=== PATIENT | female | born 1960 | race American Indian/Alaskan Native ===

== ENCOUNTER 2018-08-21 11:52 | Day surgery (SDC) | payer BC, MEDICARE ==
[2018-08-21 09:59] VITALS: BMI 24.3
[2018-08-21] MEDS ORDERED: Propofol 10 mg/ml Inj (20 ML) ONE (14:03)
[2018-08-21] MEDS ORDERED: Sodium Chloride 0.9% 1,000 ML IV SCH (15:00)
[2018-08-21 15:29] VITALS: O2SAT 99
[2018-08-21 15:53] VITALS: BP 136/80; PULSE 61; RESP 16; TEMP 97.8
== END 2018-08-21 17:00 | disposition home or self-care (01) ==
LOC: ENDO 11:52
PROVIDERS: ATTEND Internal Medicine Gastroenterology
DX: K52.9 Noninfective gastroenteritis and colitis, unspecified (principal); K63.5 Polyp of colon; K57.30 Diverticulosis of large intestine without perforation or abscess without bleeding; K64.8 Other hemorrhoids
CPT/HCPCS: 45380; 45385; 88305; J1642; J2001; J2704; J7030; J7040

== ENCOUNTER 2018-10-06 11:17 | Inpatient (IN) | payer BC, MEDICARE ==
[2018-10-06] MEDS ORDERED: Morphine 4 mg/ml ISec IVP STA ×2 (11:59→14:16)
--- NOTE | 2018-10-06 12:28 | ED PDOC ---
Arrival/HPI - General Historian: Patient - History of Present Illness Narrative History of Present Illness (Text): 10/06/18 12:19 58 year old female, whose past medical history includes hypertension, peripheral vascular disease, seizures, syncope, GI bleed, hemophilia, von Williebrand's disease, bowel surgery presenting with worsening abdominal pain over the past 3 days. She states 3 days ago she had a slight ache in her abdominal region and didn't think anything of it. Today, she felt sharp abdominal pain in the epigastric, periumbilical, and the center of the entire abdomen. Patient states pain does not radiate to her back, and has similar pain to the presenting symptoms in the past. She denies constipation (chronic loose bowel movements), urinary symptoms, fever, chills, chest pain, shortness of breath, or any other complaint. Time/Duration: < week Symptom Course: Worsening Quality: Aching Activities at Onset: Light Context: Home <Sybil Davenport - Last Filed: 10/06/18 17:05> <Torey Vela - Last Filed: 10/06/18 17:13> - General Chief Complaint: Abdominal Pain Time Seen by Provider: 10/06/18 11:18 Past Medical History - Provider Review Nursing Documentation Reviewed: Yes - Infectious Disease Hx of Infectious Diseases: None - Tetanus Immunization Tetanus Immunization: Unknown - Cardiac Hx Pacemaker: No - Pulmonary Hx Respiratory Disorders: No - Neurological Hx Paralysis: No - HEENT Hx HEENT Disorder: Yes Other/Comment: Reading glasses - Renal Hx Renal Disorder: No Other/Comment: HYPONATREMIA - Endocrine/Metabolic Hx Endocrine Disorders: Yes - Hematological/Oncological Hx Blood Transfusions: Yes Hx Blood Transfusion Reaction: No - Integumentary Hx Dermatological Disorder: No Other/Comment: skin pigmentation problem to neck - Musculoskeletal/Rheumatological Hx Musculoskeletal Disorders: Yes - Gastrointestinal Hx Gastrointestinal Disorders: Yes Hx Bowel Surgery: Yes Hx Diarrhea: Yes Hx Gall Bladder Disease: Yes (CHOLECYSTECTOMY) Other/Comment: small bowel resection 1991,1995 x2 ,H/O OF C DIFF 05-21-13. Mal absorption syndrome,SMALL BOWEL RESECTION, - Genitourinary/Gynecological Hx Genitourinary Disorders: Yes Hx Reproductive Disorders: No Other/Comment: OVARIAN CYST,LEFT OVARY REMOVED,HYSTERECTOMY, - Psychiatric Hx Emotional Abuse: No Hx Physical Abuse: No Hx Substance Use: No - Surgical History Hx Breast Biopsy: (removal of cyst) Hx Cholecystectomy: Yes Hx Hysterectomy: Yes Hx Musculoskeletal Surgery: Yes Hx Orthopedic Surgery: Yes (fx ankle, rotator cuff) Hx Vascular Access Device: Yes (right chest port) Other/Comment: rt upper chest charmaine cath,PICC LINE H/O,PORT TO RIGHT UPPER ARM H/O,TAHBSO,SMALL BOWEAL RESECTION,LEFT BREAST LUMPECTOMY,MULTIPLE ABOMINAL SX , - Anesthesia Hx Anesthesia: Yes Hx Anesthesia Reactions: No Hx Malignant Hyperthermia: No - Suicidal Assessment Feels Threatened In Home Enviroment: No <Sybil Davenport - Last Filed: 10/06/18 17:05> Family/Social History - Physician Review Nursing Documentation Reviewed: Yes Family/Social History: No Known Family HX Smoking Status: Former Smoker Hx Alcohol Use: Yes (SOCIAL) Hx Substance Use: No Hx Substance Use Treatment: No <Sybil Davenport - Last Filed: 10/06/18 17:05> Allergies/Home Meds <Sybil Davenport - Last Filed: 10/06/18 17:05> <Torey Vela - Last Filed: 10/06/18 17:13> Allergies/Adverse Reactions: Allergies amlodipine Allergy (Verified 10/06/18 16:37) PAIN PT DENIES HAVING THIS ALLERGY aspirin Adverse Reaction (Verified 10/06/18 16:37) BLEEDING Home Medications: Home Meds Medication Instructions Recorded Confirmed RX: Alprazolam [Xanax] 0.25 mg PO DAILY PRN 10/07/13 10/06/18 RX: rifAXIMin [Xifaxan] 2 tab PO BID 03/06/15 10/06/18 Colesevelam HCl [Welchol] 1,250 mg PO TID PRN 02/07/16 10/06/18 Diclofenac Epolamine [Flector] 1.3 % TP Q12 02/07/16 10/06/18 Lipase/Protease/Amylase [Creon Dr 3,000 mg PO TID PRN 02/07/16 10/06/18 3,000 Units Capsule] RX: Cyanocobalamin [Vitamin B12 1,000 mcg IM Q30D 02/07/16 10/06/18 1000 mcg/ml Inj] RX: Morphine Sulfate [Morphine 30 mg PO Q12 02/07/16 10/06/18 Sulfate ER] Ascorbic Acid [Vitamin C] 1,000 mg PO DAILY 08/18/18 10/06/18 Atropine/Diphenoxylate [Lonox 1 tab PO PRN PRN 08/18/18 10/06/18 0.025 MG-2.5 MG] Calc/D3/Mag/Zn/Nisreen/[place] 1,200 mg PO BID 08/18/18 10/06/18 [Calcium 600 mg Plus Vit D Tab] Denosumab [Prolia] 60 mg SC .Q6 MONTHS 08/18/18 10/06/18 Garlic Extract [Garlipure] 1,000 mg PO DAILY 08/18/18 10/06/18 Green Tea [place] Extract [Green Tea 500 mg PO DAILY 08/18/18 10/06/18 Extract] Iron Polysac/Iron Heme/FA/B12 1 each PO DAILY 08/18/18 10/06/18 [Hemetab Iron Supplement Tablet] [id number] Ethyl Esters 1 GM 2 gm PO BID 08/18/18 10/06/18 [Lovaza] Turmeric/Turmeric Root Extract 2 each PO DAILY 08/18/18 10/06/18 [Turmeric 500 mg Capsule] Vitamin K 2 With Vitamin K 1 1 tab PO DAILY 08/18/18 10/06/18 cloNIDine [clonidine HCl] 0.1 mg PO DAILY PRN 08/18/18 10/06/18 Cholecalciferol (Vitamin D3) 50,000 unit PO WED 08/21/18 10/06/18 [Vitamin D3] RX: Morphine [Morphine Immediate 15 mg PO Q4H PRN 08/21/18 10/06/18 Release Tab] Review of Systems - Physician Review All systems were reviewed & negative as marked: Yes - Review of Systems Constitutional: absent: Fevers Respiratory: absent: SOB, Cough Cardiovascular: absent: Chest Pain Gastrointestinal: Abdominal Pain (abdominal pain in the epigastric, periumbilical, and the entire center of the abdomen ), Diarrhea (chronic loose bowel movements). absent: Constipation, Nausea, Vomiting Genitourinary Female: absent: Dysuria Musculoskeletal: absent: Back Pain, Neck Pain Skin: absent: Rash Neurological: absent: Headache, Dizziness <Azoia,Sybil T - Last Filed: 10/06/18 17:05> Physical Exam Vital Signs Reviewed: Yes Vital Signs Temp Pulse Resp BP Pulse Ox 10/06/18 11:41 98.8 F 78 16 144/99 H 98 Temperature: Afebrile Blood Pressure: Hypertensive Pulse: Regular Respiratory Rate: Normal Appearance: Positive for: Well-Appearing, Non-Toxic, Comfortable Pain Distress: None Mental Status: Positive for: Alert and Oriented X 3 - Systems Exam Head: Present: Atraumatic, Normocephalic Conjunctiva: Present: Normal Mouth: Present: Moist Mucous Membranes Neck: Present: Normal Range of Motion Respiratory/Chest: Present: Clear to Auscultation, Good Air Exchange. No: Respiratory Distress, Accessory Muscle Use Cardiovascular: Present: Regular Rate and Rhythm, Normal S1, S2. No: Murmurs Abdomen: Present: Tenderness (diffuse abdominal tenderness), Normal Bowel Sounds, Guarding. No: Distention, Peritoneal Signs, Rebound Back: Present: Normal Inspection, Other (backk nontender). No: CVA Tenderness, Midline Tenderness, Paraspinal Tenderness Upper Extremity: Present: Normal Inspection. No: Cyanosis, Edema Lower Extremity: Present: Normal Inspection. No: Edema Neurological: Present: GCS=15, Speech Normal, Motor Func Grossly Intact (moving all extremities ) Skin: Present: Warm, Dry, Normal Color. No: Rashes Psychiatric: Present: Alert, Oriented x 3 <Sybil Davenport T - Last Filed: 10/06/18 17:05> Vital Signs Temp Pulse Resp BP Pulse Ox 10/06/18 13:25 98.3 F 73 16 139/77 100 10/06/18 11:41 98.8 F 78 16 144/99 H 98 <Torey Vela - Last Filed: 10/06/18 17:13> Medical Decision Making ED Course and Treatment: 10/06/18 11:41 Impression: 58 year old female who presents to the emergency department complaining of worsening abdominal pain. Plan: -- VBG -- CT abdomen and Pelvis -- Labs -- Morphine -- Urine Culture -- UA -- Chest X-Ray -- EKG -- Reassess and disposition Prior Visits: Notes and results from previous visits were reviewed. Progress Notes: Patient requiring multiple doses of pain medication in the emergency room Lactate 1.6 White blood cell count 14.5 CMP within normal limits Urinalysis shows trace leukocytes lipase;wnl Chest x-ray shows no cardiomegaly no infiltrate no free air EKG: Normal sinus rhythm at 80 bpm normal axes no ST elevations CAT scan of the abdomen and pelvis:FINDINGS: LOWER THORAX: Unremarkable. LIVER: Unremarkable. No gross lesion or ductal dilatation. Simple cysts are seen in the liver GALLBLADDER AND BILE DUCTS: Removed PANCREAS: There is mild dilatation of the pancreatic duct which measures up to 4 mm in diameter. This is a new finding. There is no obvious pancreatic mass. There is a duodenal diverticulum that projects medially along the inferior aspect of the pancreatic head SPLEEN: Unremarkable. ADRENALS: Unremarkable. No mass. KIDNEYS AND URETERS: Unremarkable. No hydronephrosis. No solid mass. VASCULATURE: Unremarkable. No aortic aneurysm. No aortic atherosclerotic calcification or mural plaque present. BOWEL: Unremarkable. No obstruction. No gross mural thickening. APPENDIX: Normal appendix. PERITONEUM: Unremarkable. No free fluid. No free air. LYMPH NODES: Unremarkable. No enlarged lymph nodes. BLADDER: Unremarkable. REPRODUCTIVE: Unremarkable. BONES: No acute fracture. OTHER FINDINGS: None. IMPRESSION: No acute intra-abdominal findings. Case discussed with Dr. Sanchez in depth; accepts observational status admission to [facility] with GI consult. Case was discussed with Dr. Chavez Boss's fellow in depth including ct finding of pancreatic duct dilitation. all results discussed with patient in depth. impression; intractable abdominal pain; pancreatic duct dilatation admit observational status to med/surg - RAD Interpretation Radiology Orders: 10/06/18 11:46 ABD & PELVIS IV CONTRAST ONLY [CT] Stat CHEST PORTABLE [RAD] Stat - Medication Orders Current Medication Orders: Discontinued Medications Morphine Sulfate (Morphine) 4 mg IVP STAT STA Stop: 10/06/18 12:00 <Sybil Davenport T - Last Filed: 10/06/18 17:05> - Lab Interpretations Lab Results: 10/06/18 12:30 10/06/18 12:30 Lab Results 10/06/18 12:30: WBC 14.5 H, RBC 4.62, Hgb 13.3, Hct 40.3, MCV 87.2, MCH 28.8, MCHC 33.0, RDW 14.1, Plt Count 232, MPV 9.8, Gran % 85.8 H, Lymph % (Auto) 7.0 L , [place] % (Auto) 6.8 H, Eos % (Auto) 0.3 L, Baso % (Auto) 0.1, Gran # 12.46 H, Lymph # (Auto) 1.0 L, [place] # (Auto) 1.0 H, Eos # (Auto) 0.0, Baso # (Auto) 0.01 10/06/18 12:30: Sodium 140, Chloride 100, Potassium 3.8, Carbon Dioxide 31, Anion Gap 13, BUN 7, Creatinine 0.7, Est GFR ( Amer) > 60, Est GFR (Non- Af Amer) > 60, Random Glucose 93, Calcium 9.5, Total Bilirubin 0.8, AST 18, ALT 23, Alkaline Phosphatase 81, Total Protein 7.6, Albumin 4.2, Globulin 3.3, Albumin/Globulin Ratio 1.3, Lipase 37 10/06/18 12:30: Urine Color Yellow, Urine Appearance Clear, Urine pH 7.0, Ur Specific [place] 1.010, Urine Protein Negative, Urine Glucose (UA) Negative, Urine Ketones Negative, Urine Blood Negative, Urine Nitrate Negative, Urine Bilirubin Negative, Urine Urobilinogen 0.2, Ur Leukocyte Esterase Trace H 10/06/18 12:30: pO2 47, VBG pH 7.36, VBG pCO2 56.0, VBG HCO3 31.6 H, VBG Total CO2 33.3 H, VBG O2 Sat (Calc) 83.1 H, VBG Base Excess 4.6 H, VBG Potassium 3.8, Sodium 139.0, Chloride 101.0, Glucose 93, Lactate 1.6, FiO2 21.0, Venous Blood Potassium 3.8 - RAD Interpretation Radiology Orders: 10/06/18 11:46 ABD & PELVIS IV CONTRAST ONLY [CT] Stat CHEST PORTABLE [RAD] Stat - Medication Orders Current Medication Orders: Discontinued Medications Ceftriaxone Sodium (Rocephin 1 Gram Ivpb) 1 gm in 100 mls @ 200 mls/hr IVPB STAT STA; Protocol Stop: 10/06/18 15:41 Last Admin: 10/06/18 16:04 Dose: 200 mls/hr eMAR Start Stop Document 10/06/18 16:04 KV (Rec: 10/06/18 16:05 [place] [facility] Intravenous Solution Start Date 10/06/18 Start Time 16:05 Sodium Chloride (Sodium Chloride 0.9%) 1,000 mls @ 999 mls/hr IV .Q1H1M STA Stop: 10/06/18 16:18 Last Admin: 10/06/18 16:04 Dose: 999 mls/hr eMAR Start Stop Document 10/06/18 16:04 KV (Rec: 10/06/18 16:04 [facility] Intravenous Solution Start Date 10/06/18 Start Time 16:04 Morphine Sulfate (Morphine) 4 mg IVP STAT STA Stop: 10/06/18 12:00 Last Admin: 10/06/18 12:19 Dose: 4 mg MAR Pain Assessment Document 10/06/18 12:19 FLOYD (Rec: 10/06/18 12:20 [facility] [facility] Pain Reassessment Is this a pain reassessment? Yes Presence of Pain Presence of Pain Yes Pain Scale Used Protocol: [facility] Pain Scale Used Numeric Location Left, Right or Bilateral Right Upper or Lower Lower Pain Location Body Site Abdomen Description Description Sharp Intensity of Pain at present 10 IVP Administration Document 10/06/18 12:19 FLOYD (Rec: 10/06/18 12:20 [facility] Charges for Administration # of IVP Administrations 1 Morphine Sulfate (Morphine) 4 mg IVP STAT STA Stop: 10/06/18 14:17 Last Admin: 10/06/18 14:29 Dose: 4 mg MAR Pain Assessment Document 10/06/18 14:29 FLOYD (Rec: 10/06/18 14:29 F[facility] Pain Reassessment Is this a pain reassessment? Yes Presence of Pain Presence of Pain Yes Pain Scale Used Protocol: [facility] Pain Scale Used Numeric Location Upper or Lower Lower Pain Location Body Site Abdomen Description Intensity of Pain at present 9 IVP Administration Document 10/06/18 14:29 FLOYD (Rec: 10/06/18 14:29 [facility] [facility] Charges for Administration # of IVP Administrations 1 Re-Assess: MAR Pain Assessment Document 10/06/18 15:29 KV (Rec: 10/06/18 16:06 K[facility] Pain Reassessment Is this a pain reassessment? Yes Sleep Is patient sleeping during reassessment? No Presence of Pain Presence of Pain Yes Pain Scale Used Protocol: [facility] Pain Scale Used Numeric Description Intensity of Pain at present 6 Pantoprazole Sodium (Protonix Inj) 40 mg IVP STAT STA Stop: 10/06/18 14:17 Last Admin: 10/06/18 16:08 Dose: 40 mg IVP Administration Document 10/06/18 16:08 KV (Rec: 10/06/18 16:08 K[facility] Charges for Administration # of IVP Administrations 1 <Torey Vela - Last Filed: 10/06/18 17:13> - Scribe Statement The provider has reviewed the documentation as recorded by the Scribe Jenna Mack Provider Scribe Attestation: All medical record entries made by the Scribe were at my direction and personally dictated by me. I have reviewed the chart and agree that the record accurately reflects my personal performance of the history, physical exam, medical decision making, and the department course for this patient. I have also personally directed, reviewed, and agree with the discharge instructions and disposition. <Sybil Davenport - Last Filed: 10/06/18 17:05> - PA / PURCHASING OFFICER / Resident Statement / has reviewed & agrees with the documentation as recorded. <Torey Vela - Last Filed: 10/06/18 17:13> Disposition/Present on Arrival - Present on Arrival Any Indicators Present on Arrival: No History of DVT/PE: No History of Uncontrolled Diabetes: No Urinary Catheter: No History of Decub. Ulcer: No History Surgical Site Infection Following: None - Disposition Have Diagnosis and Disposition been Completed?: Yes Disposition Time: 15:00 Patient Plan: Observation <Sybil Davenport - Last Filed: 10/06/18 17:05> <Torey Vela - Last Filed: 10/06/18 17:13> - Disposition Diagnosis: Abdominal pain, Pancreatic duct dilated Disposition: HOSPITALIZED Condition: FAIR
[2018-10-06 12:43] LABS: VENOUS BLOOD GAS BASE EXCESS 4.6 mmol/L (0.0-2.0); VENOUS BLOOD GAS PO2 47 mm/Hg (30-55); VENOUS BLOOD PH 7.36 (7.32-7.43)
[2018-10-06 12:45] LABS: BASO # 0.01 K/mm3 (0.0-2.0); BASO % 0.1 % (0.0-3.0); EOS % 0.3 % (1.5-5.0); GRAN # 12.46 (1.4-6.5); GRAN % 85.8 % (50.0-68.0); HEMOGLOBIN 13.3 g/dL (12.0-16.0); MEAN CELL VOLUME 87.2 fl (80.0-105.0); MEAN CORPUSCULAR HEMOGLOBIN 28.8 pg (25.0-35.0); MEAN PLATELET VOLUME 9.8 fl (7.0-11.0); MONO % 6.8 % (1.0-6.0); RBC 4.62 10^6/uL (3.5-6.1); RED CELL DISTRIBUTION WIDTH 14.1 % (11.5-14.5); WHITE BLOOD COUNT 14.5 10^3/uL (4.5-11.0)
[2018-10-06 12:46] LABS: URINE APPEARANCE CLEAR (CLEAR); URINE BILIRUBIN NEGATIVE (NEGATIVE); URINE BLOOD NEGATIVE (NEGATIVE); URINE COLOR YELLOW (YELLOW); URINE GLUCOSE (UA) NEGATIVE (NEGATIVE); URINE LEUKOCYTE ESTERASE TRACE Leu/uL (NEGATIVE); URINE PROTEIN NEGATIVE mg/dL (<30 mg/dL); URINE UROBILINOGEN 0.2 E.U./dL (<1 E.U./dL)
[2018-10-06] MEDS ORDERED: Iohexol 350 MG/100 ML VIAL ONE (12:52)
[2018-10-06 12:56] LABS: ALB/GLOB RATIO 1.3 (1.1-1.8); ALBUMIN 4.2 g/dL (3.0-4.8); ALT/SGPT 23 U/L (7-56); AST/SGOT 18 U/L (14-36); BLOOD UREA NITROGEN 7 mg/dL (7-21); CALCIUM 9.5 mg/dL (8.4-10.5); GFR NON-AFRICAN AMERICAN > 60; LIPASE 37 U/L (23-300)
--- NOTE | 2018-10-06 12:56 | RAD ---
Date of service: 10/06/2018 HISTORY: abd pain pain COMPARISON: 02/07/2016 FINDINGS: LUNGS: No active pulmonary disease. PLEURA: No significant pleural effusion identified, no pneumothorax apparent. CARDIOVASCULAR: No aortic atherosclerotic calcification present. Normal cardiac size. No pulmonary vascular congestion. OSSEOUS STRUCTURES: No significant abnormalities. VISUALIZED UPPER ABDOMEN: Normal. OTHER FINDINGS: Right-sided Port-A-Cath IMPRESSION: No active disease.
--- NOTE | 2018-10-06 14:28 | CT ---
Date of service: 10/06/2018 PROCEDURE: CT Abdomen and Pelvis with contrast HISTORY: abd pain COMPARISON: 02/08/2016 TECHNIQUE: Contrast dose: 100 cc of Omni 350 Radiation dose: Total exam DLP = 579.34 mGy-cm. This CT exam was performed using one or more of the following dose reduction techniques: Automated exposure control, adjustment of the mA and/or kV according to patient size, and/or use of iterative reconstruction technique. FINDINGS: LOWER THORAX: Unremarkable. LIVER: Unremarkable. No gross lesion or ductal dilatation. Simple cysts are seen in the liver GALLBLADDER AND BILE DUCTS: Removed PANCREAS: There is mild dilatation of the pancreatic duct which measures up to 4 mm in diameter. This is a new finding. There is no obvious pancreatic mass. There is a duodenal diverticulum that projects medially along the inferior aspect of the pancreatic head SPLEEN: Unremarkable. ADRENALS: Unremarkable. No mass. KIDNEYS AND URETERS: Unremarkable. No hydronephrosis. No solid mass. VASCULATURE: Unremarkable. No aortic aneurysm. No aortic atherosclerotic calcification or mural plaque present. BOWEL: Unremarkable. No obstruction. No gross mural thickening. APPENDIX: Normal appendix. PERITONEUM: Unremarkable. No free fluid. No free air. LYMPH NODES: Unremarkable. No enlarged lymph nodes. BLADDER: Unremarkable. REPRODUCTIVE: Unremarkable. BONES: No acute fracture. OTHER FINDINGS: None. IMPRESSION: No acute intra-abdominal findings.
[2018-10-06] MEDS ORDERED: cefTRIAXone 1 gm 1 GM/100 ML BAG IVPB STA (15:12)
[2018-10-06] MEDS ORDERED: Sodium Chloride 0.9% 1,000 ML IV STA ×2 (15:18→18:55)
[2018-10-06 18:13] VITALS: BMI 27.3
--- NOTE | 2018-10-06 19:10 | CARD ---
APPROVED REPORT Date of service: 10/06/2018 EKG Measurement Heart [id number] <Conclusion> Normal sinus rhythm Poor R wave progression. Cannot rule out Anterior infarct, age undetermined Abnormal ECG
[2018-10-06] MEDS: Morphine 2 mg/ml ISec IVP PRN ×2 (19:12→23:56)
[2018-10-07] MEDS: Morphine 2 mg/ml ISec IVP PRN ×5 (05:12→21:43)
--- NOTE | 2018-10-07 06:31 | CP.PCM.CON ---
History of Present Illness - History of Present Illness History of Present Illness: Reason for consult: Abdominal pain CC: Abdominal pain HPI: 58yo female with PMH of Von Willebrands disease, hx of cholecystectomy 05/13 15, small bowel resection, short gut syndrome, hysterectomy, presenting with abdominal pain x 1 day. Pt states she woke up in the morning and had two episodes of non bloody, painless diarrhea, and subsequently developed diffuse abdominal cramping. Pt endorses normally loose stools 2/2 short gut syndrome s/p multiple abdominal surgeries with small bowel resection. Her abdominal pain was 10/10 at its worst, currently 8/10, radiating to the back. Pain described as cramping in nature. She had one episodes of similar intensity two weeks ago that spontaneously resolved. Pt states she has a history of colonic bacterial overgrowth due to slow intestinal transit in the past for which she has had to take abx and had similar types of pain. Pt had breakfast and tolerated full liquids throughout the day. Endorses flatus. PMH: as stated above PSH:hysterectomy, lap cholecystectomy, ROS: positive for abdominal pain, headache Denies fever, chills, chest pain, palpitations, nausea, vomiting, constipation. Review of Systems - Review of Systems Review of Systems: 10 pt ROS unremarkable, except as stated in HPI Past Patient History - Infectious Disease Hx of Infectious Diseases: None - Tetanus Immunizations Tetanus Immunization: Unknown - Past Social History Smoking Status: Never Smoked - CARDIAC Hx Cardiac Disorders: Yes Hx Hypercholesterolemia: Yes Hx Hypertension: Yes Hx Peripheral Vascular Disease: Yes (DVT LEFT UPPER ARM 2013) - PULMONARY Hx Respiratory Disorders: Yes Hx Chronic Obstructive Pulmonary Disease (COPD): Yes Other/Comment: SARCOIDOSIS - NEUROLOGICAL Hx Neurological Disorder: Yes Hx Dizziness: Yes Other/Comment: syncope falls - HEENT Hx HEENT Problems: No Other/Comment: Reading glasses - RENAL Hx Chronic Kidney Disease: No Other/Comment: HYPONATREMIA - ENDOCRINE/METABOLIC Hx Endocrine Disorders: No - HEMATOLOGICAL/ONCOLOGICAL Hx Blood Disorders: Yes (GI BLEED,HEMOPHILIA A) Hx Anemia: Yes (IRON DEFICIENCY) Hx Unexplained Bleeding: (hemophelia) Other/Comment: VON WILLEBRAND, BLOOD TRANSFUSIONS - INTEGUMENTARY Hx Dermatological Problems: No Other/Comment: skin pigmentation problem to neck - MUSCULOSKELETAL/RHEUMATOLOGICAL Hx Back Pain: Yes Hx Falls: Yes Hx Fractures: Yes (RIGHT ANKLE) Other/Comment: RIGHT ROTATOR CUFF SURGERY X 2, LEFT FOOT SURGERY - GASTROINTESTINAL Hx Gastrointestinal Disorders: Yes Hx Gall Bladder Disease: Yes (CHOLECYSTECTOMY) Other/Comment: SMALL BOWEL RESECTION X 3, H/O OF C DIFF 2012. MALABSORPTION SYNDROME - GENITOURINARY/GYNECOLOGICAL Hx Genitourinary Disorders: Yes Other/Comment: OVARIAN CYST, LEFT OVARY REMOVED, HYSTERECTOMY, CERVICAL DYSPLASIA,. CYST REMOVED LEFT BREAST (1996) - PSYCHIATRIC Hx Anxiety: Yes Hx Depression: Yes - SURGICAL HISTORY Hx Cholecystectomy: Yes Hx Hysterectomy: Yes Hx Musculoskeletal Surgery: Yes (RIGHT ROTATOR CUFF) Hx Orthopedic Surgery: Yes (RIGHT ANKLE FRACTURE) Other/Comment: RIGHT CHEST WALL PORT, SMALL BOWEL RESECTION X 3, LEFT BREAST LUMPECTOMY - ANESTHESIA Hx Anesthesia: Yes Hx Anesthesia Reactions: No Hx Malignant Hyperthermia: No Meds Allergies/Adverse Reactions: Allergies Allergy/AdvReac Type Severity Reaction Status Date / Time amlodipine Allergy PAIN Verified 10/06/18 16:37 aspirin AdvReac BLEEDING Verified 10/06/18 16:37 - Medications Medications: Current Medications Clonidine HCl (Catapres) 0.1 mg PO Q6 PRN PRN Reason: hypertension Morphine Sulfate (Morphine) 2 mg IVP Q4H PRN PRN Reason: Pain, severe (8-10) Last Admin: 10/07/18 05:12 Dose: 2 mg Ondansetron HCl (Zofran Inj) 4 mg IVP Q6H PRN PRN Reason: Nausea/Vomiting Pantoprazole Sodium (Protonix Inj) 40 mg IVP DAILY THOMAS Physical Exam - Constitutional Appears: No Acute Distress - Head Exam Head Exam: NORMOCEPHALIC - Eye Exam Eye Exam: EOMI, Normal appearance - ENT Exam ENT Exam: Mucous Membranes Moist - Respiratory Exam Respiratory Exam: NORMAL BREATHING PATTERN - Cardiovascular Exam Cardiovascular Exam: +S1, +S2 - GI/Abdominal Exam GI & Abdominal Exam: Normal Bowel Sounds, Soft, Tenderness. absent: Distended, Firm, Guarding, Rebound, Rigid Additional comments: tenderness is worse along epigastrium - Neurological Exam Neurological exam: Alert, Oriented x3 - Psychiatric Exam Psychiatric exam: Normal Mood - Skin Skin Exam: Dry, Intact, Warm Results - Vital Signs Recent Vital Signs: Last Vital Signs Temp 98.8 F 10/06/18 17:56 Pulse 85 10/06/18 17:56 Resp 18 10/06/18 17:56 BP 139/98 H 10/06/18 17:56 Pulse Ox 98 10/06/18 17:56 - Labs Result Diagrams: 10/08/18 06:00 10/08/18 06:00 Labs: Laboratory Results - last 24 hr 10/06/18 10/06/18 10/06/18 12:30 12:30 12:30 WBC RBC Hgb Hct MCV MCH MCHC RDW Plt Count MPV Gran % Lymph % (Auto) [place] % (Auto) Eos % (Auto) Baso % (Auto) Gran # Lymph # (Auto) [place] # (Auto) Eos # (Auto) Baso # (Auto) pO2 47 VBG pH 7.36 VBG pCO2 56.0 VBG HCO3 31.6 H VBG Total CO2 33.3 H VBG O2 Sat (Calc) 83.1 H VBG Base Excess 4.6 H VBG Potassium 3.8 Sodium 139.0 140 Chloride 101.0 100 Glucose 93 Lactate 1.6 FiO2 21.0 Potassium 3.8 Carbon Dioxide 31 Anion Gap 13 BUN 7 Creatinine 0.7 Est GFR ( Amer) > 60 Est GFR (Non-Af Amer) > 60 Random Glucose 93 Calcium 9.5 Total Bilirubin 0.8 AST 18 ALT 23 Alkaline Phosphatase 81 Total Protein 7.6 Albumin 4.2 Globulin 3.3 Albumin/Globulin Ratio 1.3 Amylase Lipase 37 Venous Blood Potassium 3.8 Urine Color Yellow Urine Appearance Clear Urine pH 7.0 Ur Specific [place] 1.010 Urine Protein Negative Urine Glucose (UA) Negative Urine Ketones Negative Urine Blood Negative Urine Nitrate Negative Urine Bilirubin Negative Urine Urobilinogen 0.2 Ur Leukocyte Esterase Trace H 10/06/18 10/06/18 12:30 12:30 WBC 14.5 H RBC 4.62 Hgb 13.3 Hct 40.3 MCV 87.2 MCH 28.8 MCHC 33.0 RDW 14.1 Plt Count 232 MPV 9.8 Gran % 85.8 H Lymph % (Auto) 7.0 L [place] % (Auto) 6.8 H Eos % (Auto) 0.3 L Baso % (Auto) 0.1 Gran # 12.46 H Lymph # (Auto) 1.0 L [place] # (Auto) 1.0 H Eos # (Auto) 0.0 Baso # (Auto) 0.01 pO2 VBG pH VBG pCO2 VBG HCO3 VBG Total CO2 VBG O2 Sat (Calc) VBG Base Excess VBG Potassium Sodium Chloride Glucose Lactate FiO2 Potassium Carbon Dioxide Anion Gap BUN Creatinine Est GFR ( Amer) Est GFR (Non-Af Amer) Random Glucose Calcium Total Bilirubin AST ALT Alkaline Phosphatase Total Protein Albumin Globulin Albumin/Globulin Ratio Amylase 97 Lipase Venous Blood Potassium Urine Color Urine Appearance Urine pH Ur Specific [place] Urine Protein Urine Glucose (UA) Urine Ketones Urine Blood Urine Nitrate Urine Bilirubin Urine Urobilinogen Ur Leukocyte Esterase Assessment & Plan - Assessment and Plan (Free Text) Assessment: 58F with abdominal pain Plan: Patient noted to have duodenal diverticula on CT Abd & Pelvis Duodenal divterticula noted on CT Abd & Pel done on 02/08/16 However, there is mild dilatation of pancreatic duct ~4mm which is a new finding Lipase/Amylase WNL No clinical evidence of SBO Unclear whether abdominal pain is 2/2 to presence of duodenal diverticula Abdominal pain likely secondary to multiple abdominal interventions in past F/u GI recs No plan for surgical intervention at this present time D/w Dr. Jensen Amaya PGY3
[2018-10-07 11:06] LABS: BASO # 0.01 K/mm3 (0.0-2.0); BASO % 0.2 % (0.0-3.0); EOS # 0.1 (0.0-0.7); EOS % 1.6 % (1.5-5.0); GRAN # 2.87 (1.4-6.5); GRAN % 64.2 % (50.0-68.0); HEMOGLOBIN 11.8 g/dL (12.0-16.0); LYMPH # 1.1 (1.2-3.4); LYMPH % 25.1 % (22.0-35.0); MEAN CELL VOLUME 87.8 fl (80.0-105.0); MEAN CORPUSCULAR HEMOGLOBIN 28.2 pg (25.0-35.0); MEAN CORPUSCULAR HGB CONC 32.2 g/dl (31.0-37.0); MEAN PLATELET VOLUME 9.4 fl (7.0-11.0); MONO # 0.4 (0.1-0.6); MONO % 8.9 % (1.0-6.0); RBC 4.18 10^6/uL (3.5-6.1); RED CELL DISTRIBUTION WIDTH 14.4 % (11.5-14.5); WHITE BLOOD COUNT 4.5 10^3/uL (4.5-11.0)
[2018-10-07 11:32] LABS: ALB/GLOB RATIO 1.2 (1.1-1.8); ALBUMIN 3.5 g/dL (3.0-4.8); ALT/SGPT 23 U/L (7-56); AST/SGOT 14 U/L (14-36); BLOOD UREA NITROGEN 5 mg/dL (7-21); CALCIUM 7.8 mg/dL (8.4-10.5); GFR NON-AFRICAN AMERICAN > 60
--- NOTE | 2018-10-07 14:10 | CP.PCM.HP ---
History of Present Illness - History of Present Illness History of Present Illness: Hematology/Oncology History and Physical (Dr. Sanchez's Service) CC: Abdominal Pain HPI: Mrs. Bailey is a 58 year old female with a past medical history significant for Von Willebrand's Disease, HTN and Short Gut Syndrome who presen ts with one day of diffuse abdominal cramping with two associated episodes of diarrhea. Patient reports that she woke up yesterday morning with the urge to defecate and produced two episodes of non-bloody painless diarrhea. Shortly after this, patient endorses that she experienced a diffuse, dull, 8/10 abdominal pain that radiated to her back. She denies any association with PO intake, exertion or body position. She does report that she has had this in the past but that it has been self limited. She reports that she had PO intake without worsening abdominal pain or N/V after the incident took place. She currently reports only minimal abdominal pain and denies fevers, chills, headache, chest pain, SOB, wheezing, N/V/D/C, changes in urine output, skin changes or any numbness/tingling of any extremity. PMH: as above PSH: Total hysterectomy, lap cholecystectomy, and multiple small bowel res ections Family History: Non-Contributory Social History: Denies any tobacco, alcohol or illicit drug abuse Allergies: Norvasc and ASA Home Medications: As per MAR Present on Admission - Present on Admission Any Indicators Present on Admission: No Review of Systems - Review of Systems Review of Systems: As stated in HPI, otherwise negative Past Patient History - Infectious Disease Hx of Infectious Diseases: None - Tetanus Immunizations Tetanus Immunization: Unknown - Past Social History Smoking Status: Never Smoked - CARDIAC Hx Cardiac Disorders: Yes Hx Hypercholesterolemia: Yes Hx Hypertension: Yes Hx Peripheral Vascular Disease: Yes (DVT LEFT UPPER ARM 2012) - PULMONARY Hx Respiratory Disorders: Yes Hx Chronic Obstructive Pulmonary Disease (COPD): Yes Other/Comment: SARCOIDOSIS - NEUROLOGICAL Hx Neurological Disorder: Yes Hx Dizziness: Yes Other/Comment: syncope falls - HEENT Hx HEENT Problems: No Other/Comment: Reading glasses - RENAL Hx Chronic Kidney Disease: No Other/Comment: HYPONATREMIA - ENDOCRINE/METABOLIC Hx Endocrine Disorders: No - HEMATOLOGICAL/ONCOLOGICAL Hx Blood Disorders: Yes (GI BLEED,HEMOPHILIA A) Hx Anemia: Yes (IRON DEFICIENCY) Hx Unexplained Bleeding: (hemophelia) Other/Comment: VON WILLEBRAND, BLOOD TRANSFUSIONS - INTEGUMENTARY Hx Dermatological Problems: No Other/Comment: skin pigmentation problem to neck - MUSCULOSKELETAL/RHEUMATOLOGICAL Hx Back Pain: Yes Hx Falls: Yes Hx Fractures: Yes (RIGHT ANKLE) Other/Comment: RIGHT ROTATOR CUFF SURGERY X 2, LEFT FOOT SURGERY - GASTROINTESTINAL Hx Gastrointestinal Disorders: Yes Hx Gall Bladder Disease: Yes (CHOLECYSTECTOMY) Other/Comment: SMALL BOWEL RESECTION X 3, H/O OF C DIFF 2012. MALABSORPTION SYNDROME - GENITOURINARY/GYNECOLOGICAL Hx Genitourinary Disorders: Yes Other/Comment: OVARIAN CYST, LEFT OVARY REMOVED, HYSTERECTOMY, CERVICAL DYSPLASIA,. CYST REMOVED LEFT BREAST (1996) - PSYCHIATRIC Hx Anxiety: Yes Hx Depression: Yes - SURGICAL HISTORY Hx Cholecystectomy: Yes Hx Hysterectomy: Yes Hx Musculoskeletal Surgery: Yes (RIGHT ROTATOR CUFF) Hx Orthopedic Surgery: Yes (RIGHT ANKLE FRACTURE) Other/Comment: RIGHT CHEST WALL PORT, SMALL BOWEL RESECTION X 3, LEFT BREAST LUMPECTOMY - ANESTHESIA Hx Anesthesia: Yes Hx Anesthesia Reactions: No Hx Malignant Hyperthermia: No Meds Allergies/Adverse Reactions: Allergies Allergy/AdvReac Type Severity Reaction Status Date / Time amlodipine Allergy PAIN Verified 10/06/18 16:37 aspirin AdvReac BLEEDING Verified 10/06/18 16:37 Physical Exam - Constitutional Appears: Non-toxic, No Acute Distress - Head Exam Head Exam: ATRAUMATIC, NORMOCEPHALIC - Eye Exam Eye Exam: EOMI, Normal appearance - ENT Exam ENT Exam: Mucous Membranes Moist - Neck Exam Neck exam: Positive for: Full Rom - Respiratory Exam Respiratory Exam: Clear to Auscultation Bilateral, NORMAL BREATHING PATTERN. absent: Rales, Rhonchi, Wheezes - Cardiovascular Exam Cardiovascular Exam: REGULAR RHYTHM, RRR, +S1, +S2 - GI/Abdominal Exam GI & Abdominal Exam: Normal Bowel Sounds, Soft, Tenderness (TTP epigastric). absent: Distended, Firm, Guarding, Rebound - Rectal Exam Rectal Exam: Deferred - Extremities Exam Extremities exam: Negative for: calf tenderness - Neurological Exam Neurological exam: Alert, Oriented x3 - Psychiatric Exam Psychiatric exam: Normal Affect, Normal Mood - Skin Skin Exam: Dry, Intact, Warm Results - Vital Signs Recent Vital Signs: Last Vital Signs Temp 97.6 F 10/07/18 08:42 Pulse 80 10/07/18 08:42 Resp 20 10/07/18 08:42 BP 108/75 10/07/18 08:42 Pulse Ox 96 10/07/18 08:42 - Labs Result Diagrams: 10/07/18 10:50 10/07/18 10:50 Labs: Laboratory Results - last 24 hr 10/06/18 10/07/18 10/07/18 12:30 10:50 10:50 WBC 4.5 D RBC 4.18 Hgb 11.8 L Hct 36.7 MCV 87.8 MCH 28.2 MCHC 32.2 RDW 14.4 Plt Count 194 MPV 9.4 Gran % 64.2 Lymph % (Auto) 25.1 [place] % (Auto) 8.9 H Eos % (Auto) 1.6 Baso % (Auto) 0.2 Gran # 2.87 Lymph # (Auto) 1.1 L [place] # (Auto) 0.4 Eos # (Auto) 0.1 Baso # (Auto) 0.01 Sodium 141 Potassium 4.0 Chloride 107 Carbon Dioxide 28 Anion Gap 10 BUN 5 L Creatinine 0.8 Est GFR ( Amer) > 60 Est GFR (Non-Af Amer) > 60 Random Glucose 91 Calcium 7.8 L Phosphorus 2.9 Magnesium 2.1 Total Bilirubin 1.3 AST 14 D ALT 23 Alkaline Phosphatase 68 Total Protein 6.5 Albumin 3.5 Globulin 3.0 Albumin/Globulin Ratio 1.2 Amylase 97 Assessment & Plan - Assessment and Plan (Free Text) Assessment: 58 year old female with a past medical history significant for Von Willebrand's Disease, HTN and Short Gut Syndrome who presents with one day of diffuse abdominal cramping with two associated episodes of diarrhea. Plan: 1. Diffuse Abdominal Pain -CT Abdomen/Pelvis showed dilated pancreatic duct to 4mm and previously seen duodenal diverticulum -Chest X-Ray showed no acute pulmonary disease -EKG showed normal sinus rhythm without ST segment changes -Amylase and Lipase within normal limits -UA negative for UTI -Norovirus, Salmonella and C.Diff serologies pending -MRCP pending -Continue Morphine 2mg Q3 PRN for severe pain control -Continue Zofran 4mg Q4 PRN for N/V -Continue NS at 100mls/hr -NPO for MRCP -No surgical interventions indicated at this time -GI and Surgery consulted, all recommendations appreciated 2. History of HTN -Continue Clonidine 0.1mg PO Q6 PRN -Nephrology consulted, all recommendations appreciated GI Prophylaxis: Protonix DVT Prophylaxis: SCD's Diet: NPO Code Status: Full Code Patient seen and case discussed with attending, Dr. Sanchez. Luis Carlos Ventura PGY2 - Date & Time Date: 10/07/18 Time: 14:09
--- NOTE | 2018-10-07 17:10 | CON ---
DATE: 10/07/2018 REASON FOR CONSULTATION: Severe abdominal pain, hypertension. HISTORY OF PRESENT ILLNESS: A 58-year-old young woman known to me from outpatient followup. 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 While she was in the office, she developed severe sudden abdominal pain. She was unable to hold herself up. She was doubling up in pain. She was advised to go to the emergency room. Subsequently, she went to Dr. Byrne's office and he also advised her to go to the emergency room. In the emergency room, she was found to be hemodynamically stable. Her pressure was somewhat high, 144/99. She was afebrile. Her admission blood work showed an elevated WBC count of 14.5. The patient had a CT scan of her abdomen and pelvis which showed mild dilatation of the pancreatic duct with no obvious stones or pancreatic mass. PAST MEDICAL AND SURGICAL HISTORY: Von Willebrand disease, history of cholecystectomy, small-bowel resection, short-gut syndrome, hypertension, hyponatremia, multiple abdominal surgeries. FAMILY HISTORY: Noncontributory. SOCIAL HISTORY: No smoking, no alcohol use, no IV drug abuse. ALLERGIES: AMLODIPINE AND ASPIRIN. MEDICATIONS: At home, rifaximin, Xanax, clonidine 0.1 mg as needed, lipase, amylase. REVIEW OF SYSTEMS: Severe abdominal pain. No nausea, no vomiting, no diarrhea, no constipation, no fever, no chills. Rest unremarkable. PHYSICAL EXAMINATION GENERAL: , lying in bed. VITAL SIGNS: Blood pressure 108/75, heart rate 80, respiratory rate 20, temperature is 97.6. HEENT: Normocephalic, atraumatic, positive pallor. NECK: Supple, no JVD. LUNGS: Bilateral equal air entry, bilateral equal expansion. No rales. CARDIAC: S1, S2. Regular rate and rhythm. No murmur, no rub. ABDOMEN: Obese, soft, nondistended, nontender. Bowel sounds present. EXTREMITIES: No lower extremity edema. LABORATORY DATA: WBC 4.5, hemoglobin 11.8, hematocrit 37, platelets 194,000. Sodium 141, potassium 4.0, chloride 107, CO2 of 28, BUN 5, creatinine 0.8, glucose 91. Calcium 7.8, phosphorus 2.9, magnesium 2.1. Albumin 3.5. Corrected calcium is 8.1. Urinalysis, yellow, clear, pH 7.0, specific gravity 1.010, protein negative, glucose negative, ketones negative, nitrite negative, leukocyte esterase trace. DIAGNOSTIC DATA: CT of the abdomen as mentioned in the history of presenting illness. CURRENT MEDICATIONS: Clonidine 0.1 mg as needed, morphine, Protonix, Zofran. ASSESSMENT: 1. Severe abdominal pain, leukocytosis, ?colitis. 2. Transient elevated blood pressure, likely secondary to pain. 3. History of von Willebrand disease. 4. History of multiple abdominal surgeries. PLAN: 1. Continue clonidine 0.1 mg as needed. Monitor blood pressure every 6 hours. 2. Continue empiric antibiotics? 3. GI followup. Thea Ricardo MD (Delete this signature block when dictator is a preceptor.) cc: MD Grace (Delete if not dictated.)
--- NOTE | 2018-10-07 17:45 | CP.PCM.CON ---
Past Patient History - Infectious Disease Hx of Infectious Diseases: None - Tetanus Immunizations Tetanus Immunization: Unknown - Past Social History Smoking Status: Never Smoked - CARDIAC Hx Cardiac Disorders: Yes Hx Hypercholesterolemia: Yes Hx Hypertension: Yes Hx Peripheral Vascular Disease: Yes (DVT LEFT UPPER ARM 2012) - PULMONARY Hx Respiratory Disorders: Yes Hx Chronic Obstructive Pulmonary Disease (COPD): Yes Other/Comment: SARCOIDOSIS - NEUROLOGICAL Hx Neurological Disorder: Yes Hx Dizziness: Yes Other/Comment: syncope falls - HEENT Hx HEENT Problems: No Other/Comment: Reading glasses - RENAL Hx Chronic Kidney Disease: No Other/Comment: HYPONATREMIA - ENDOCRINE/METABOLIC Hx Endocrine Disorders: No - HEMATOLOGICAL/ONCOLOGICAL Hx Blood Disorders: Yes (GI BLEED,HEMOPHILIA A) Hx Anemia: Yes (IRON DEFICIENCY) Hx Unexplained Bleeding: (hemophelia) Other/Comment: VON WILLEBRAND, BLOOD TRANSFUSIONS - INTEGUMENTARY Hx Dermatological Problems: No Other/Comment: skin pigmentation problem to neck - MUSCULOSKELETAL/RHEUMATOLOGICAL Hx Back Pain: Yes Hx Falls: Yes Hx Fractures: Yes (RIGHT ANKLE) Other/Comment: RIGHT ROTATOR CUFF SURGERY X 2, LEFT FOOT SURGERY - GASTROINTESTINAL Hx Gastrointestinal Disorders: Yes Hx Gall Bladder Disease: Yes (CHOLECYSTECTOMY) Other/Comment: SMALL BOWEL RESECTION X 3, H/O OF C DIFF 2012. MALABSORPTION SYNDROME - GENITOURINARY/GYNECOLOGICAL Hx Genitourinary Disorders: Yes Other/Comment: OVARIAN CYST, LEFT OVARY REMOVED, HYSTERECTOMY, CERVICAL DYSPLASIA,. CYST REMOVED LEFT BREAST (1996) - PSYCHIATRIC Hx Anxiety: Yes Hx Depression: Yes - SURGICAL HISTORY Hx Cholecystectomy: Yes Hx Hysterectomy: Yes Hx Musculoskeletal Surgery: Yes (RIGHT ROTATOR CUFF) Hx Orthopedic Surgery: Yes (RIGHT ANKLE FRACTURE) Other/Comment: RIGHT CHEST WALL PORT, SMALL BOWEL RESECTION X 3, LEFT BREAST LUM PECTOMY - ANESTHESIA Hx Anesthesia: Yes Hx Anesthesia Reactions: No Hx Malignant Hyperthermia: No Meds Allergies/Adverse Reactions: Allergies Allergy/AdvReac Type Severity Reaction Status Date / Time amlodipine Allergy PAIN Verified 10/06/18 16:37 aspirin AdvReac BLEEDING Verified 10/06/18 16:37 - Medications Medications: Current Medications Clonidine HCl (Catapres) 0.1 mg PO Q6 PRN PRN Reason: hypertension Morphine Sulfate (Morphine) 2 mg IVP Q3H PRN PRN Reason: Pain, severe (8-10) Last Admin: 10/07/18 16:44 Dose: 2 mg Ondansetron HCl (Zofran Inj) 4 mg IVP Q6H PRN PRN Reason: Nausea/Vomiting Pantoprazole Sodium (Protonix Inj) 40 mg IVP DAILY THOMAS Last Admin: 10/07/18 09:09 Dose: 40 mg Results - Vital Signs Recent Vital Signs: Last Vital Signs Temp 98.2 F 10/07/18 17:30 Pulse 71 10/07/18 17:30 Resp 20 10/07/18 17:30 BP 128/84 10/07/18 17:30 Pulse Ox 98 10/07/18 17:30 - Labs Result Diagrams: 10/07/18 10:50 10/07/18 10:50 Labs: Laboratory Results - last 24 hr 10/06/18 10/07/18 10/07/18 12:30 10:50 10:50 WBC 4.5 D RBC 4.18 Hgb 11.8 L Hct 36.7 MCV 87.8 MCH 28.2 MCHC 32.2 RDW 14.4 Plt Count 194 MPV 9.4 Gran % 64.2 Lymph % (Auto) 25.1 [place] % (Auto) 8.9 H Eos % (Auto) 1.6 Baso % (Auto) 0.2 Gran # 2.87 Lymph # (Auto) 1.1 L [place] # (Auto) 0.4 Eos # (Auto) 0.1 Baso # (Auto) 0.01 Sodium 141 Potassium 4.0 Chloride 107 Carbon Dioxide 28 Anion Gap 10 BUN 5 L Creatinine 0.8 Est GFR ( Amer) > 60 Est GFR (Non-Af Amer) > 60 Random Glucose 91 Calcium 7.8 L Phosphorus 2.9 Magnesium 2.1 Total Bilirubin 1.3 AST 14 D ALT 23 Alkaline Phosphatase 68 Total Protein 6.5 Albumin 3.5 Globulin 3.0 Albumin/Globulin Ratio 1.2 Amylase 97
[2018-10-07] MEDS ORDERED: Sodium Chloride 0.45% 1,000 ML IV ONE (19:36)
[2018-10-07 20:42] LABS: INR 1.02; PROTHROMBIN TIME 11.6 SECONDS (9.4-12.5)
[2018-10-08] MEDS: Morphine 2 mg/ml ISec IVP PRN ×5 (03:53→22:24)
[2018-10-08 07:01] LABS: BASO # 0.01 K/mm3 (0.0-2.0); BASO % 0.2 % (0.0-3.0); EOS # 0.1 (0.0-0.7); EOS % 2.9 % (1.5-5.0); GRAN # 1.97 (1.4-6.5); GRAN % 47.2 % (50.0-68.0); HEMOGLOBIN 10.9 g/dL (12.0-16.0); LYMPH # 1.7 (1.2-3.4); LYMPH % 40.8 % (22.0-35.0); MEAN CELL VOLUME 88.2 fl (80.0-105.0); MEAN CORPUSCULAR HEMOGLOBIN 27.9 pg (25.0-35.0); MEAN CORPUSCULAR HGB CONC 31.7 g/dl (31.0-37.0); MEAN PLATELET VOLUME 9.6 fl (7.0-11.0); MONO # 0.4 (0.1-0.6); MONO % 8.9 % (1.0-6.0); RBC 3.9 10^6/uL (3.5-6.1); RED CELL DISTRIBUTION WIDTH 14.4 % (11.5-14.5); WHITE BLOOD COUNT 4.2 10^3/uL (4.5-11.0)
[2018-10-08 08:09] LABS: ALB/GLOB RATIO 1.2 (1.1-1.8); ALBUMIN 3.2 g/dL (3.0-4.8); ALT/SGPT 25 U/L (7-56); AST/SGOT 17 U/L (14-36); BLOOD UREA NITROGEN 3 mg/dL (7-21); CALCIUM 7.2 mg/dL (8.4-10.5); GFR NON-AFRICAN AMERICAN > 60
[2018-10-08] MEDS ORDERED: Gadodiamide 287 MG/ML VIAL (20ML) IV ONE (08:30)
[2018-10-08] MEDS ORDERED: Dextrose 5%/0.45% NS 1,000 ML IV SCH (08:45)
--- NOTE | 2018-10-08 09:32 | CP.PCM.PN ---
Subjective - Date & Time of Evaluation Date of Evaluation: 10/08/18 Time of Evaluation: 10:15 - Subjective Subjective: Sebas Garrison, PGY-1, Surgery Progress Note for Dr. Barcenas Patient seen and evaluated at bedside. Patient reports abdominal pain and denies passing flatus or having a bowel movement. Patient denies nausea and vomiting. Objective - Vital Signs/Intake and Output Vital Signs (last 24 hours): Temp Pulse Resp BP Pulse Ox 97.9 F 61 18 128/79 97 10/08/18 08:46 10/08/18 08:46 10/08/18 08:46 10/08/18 08:46 10/08/18 08:46 Intake and Output: 10/08/18 10/08/18 06:59 18:59 Intake Total 1260 Balance 1260 - Medications Medications: Current Medications Clonidine HCl (Catapres) 0.1 mg PO Q6 PRN PRN Reason: hypertension Potassium Chloride (Potassium Chloride 20 Meq/100 Ml) 20 meq in 100 mls @ 50 mls/hr IVPB ONCE ONE Stop: 10/08/18 10:42 Dextrose/Sodium Chloride (Dextrose 5%/0.45% Ns 1000 Ml) 1,000 mls @ 100 mls/hr IV .Q10H THOMAS Morphine Sulfate (Morphine) 2 mg IVP Q3H PRN PRN Reason: Pain, severe (8-10) Last Admin: 10/08/18 08:24 Dose: 2 mg Ondansetron HCl (Zofran Inj) 4 mg IVP Q6H PRN PRN Reason: Nausea/Vomiting Pantoprazole Sodium (Protonix Inj) 40 mg IVP DAILY [facility] Last Admin: 10/07/18 09:09 Dose: 40 mg - Labs Labs: 10/08/18 06:00 10/08/18 06:00 PT 11.6 SECONDS (9.4-12.5) 10/07/18 20:15 INR 1.02 10/07/18 20:15 - Constitutional Appears: Well, Non-toxic, No Acute Distress - Head Exam Head Exam: ATRAUMATIC, NORMAL INSPECTION, NORMOCEPHALIC - Eye Exam Eye Exam: EOMI Pupil Exam: PERRL - Respiratory Exam Respiratory Exam: Clear to Ausculation Bilateral, NORMAL BREATHING PATTERN - Cardiovascular Exam Cardiovascular Exam: REGULAR RHYTHM - GI/Abdominal Exam GI & Abdominal Exam: Soft, Normal Bowel Sounds - Extremities Exam Extremities Exam: Full ROM - Neurological Exam Neurological Exam: Alert, Awake, CN II-XII Intact, Oriented x3 Assessment and Plan - Assessment and Plan (Free Text) Assessment: 58 year old female with past medical history of hypertension, PAD, seizures, and VWD presents with duodenal diverticulum Plan: Follow up results of MRCP. Follow up recommendations from GI. Pain control with morphine PRN Continue with maintenance fluids. Zofran PRN for nausea Replete electrolytes as needed. DVT prophylaxis with SCD. GI prophylaxis with protonix. Will discuss plan with Dr. Barcenas.
--- NOTE | 2018-10-08 11:15 | MRI ---
Date of service: 10/08/2018 PROCEDURE: MRI Abdomen with and without contrast plus MRCP imaging HISTORY: Abdominal pain. Pancreatic duct dilatation COMPARISON: MRI 10/13/2013. TECHNIQUE: Multisequence, multiplanar MR images of the abdomen with and without gadolinium contrast enhancement. 20 cc of Omniscan FINDINGS: LIVER: Scattered simple cysts are seen in the liver. GALLBLADDER: Gallbladder removed. There is mild dilatation of the common duct measuring 8 mm in diameter. This is within normal limits following cholecystectomy. SPLEEN: Unremarkable. PANCREAS: There is mild dilatation of the pancreatic duct. The finding is unchanged since 2012. ADRENALS: Unremarkable. KIDNEYS: Unremarkable. AORTA: No aneurysm. ASCITES: None. PERITONEUM: Unremarkable. LYMPH NODES: Unremarkable. OTHER FINDINGS: There are no enhancing lesions IMPRESSION: Chronic mild dilatation of the pancreatic duct unchanged. No evidence of pancreatic lesion. Post cholecystectomy enlargement of the common bile duct. No evidence of common duct stone
[2018-10-08] MEDS ORDERED: Propofol 10 mg/ml Inj (20 ML) ONE (14:11)
[2018-10-08] MEDS: Sodium Chloride 0.9% 1,000 ML IV SCH ×2 (17:55→20:22)
[2018-10-08] MEDS: Sucralfate 1 gm/10 ml Oral Susp UD PO SCH (20:22)
--- NOTE | 2018-10-08 20:28 | PN ---
DATE: 10/08/2018 This is [facility] visit on the medical floor. For Dr. Sanchez. SUBJECTIVE: The patient is a 58-year-old female admitted by the emergency room 2 days prior for evaluation of severe abdominal pain worsened over the previous 3 days, recently with a slight ache, now significantly worse. 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 With this, the patient did have evaluation by Dr. Byrne with an MRCP done earlier today showing chronic mild dilatation of the pancreatic duct unchanged, no evidence of pancreatic lesion, post-cholecystectomy, enlargement of the common bile duct, no evidence of common duct stone. With this, she reports she had relief of her discomfort with analgesic; however, the pain recurred with the patient is scheduled for an EGD as per Dr. Byrne later this morning. PHYSICAL EXAMINATION: VITAL SIGNS: Temperature 98.2, pulse 61, respirations 12, blood pressure 143/84 and pulse ox 98%. HEENT: Unremarkable. NECK: Supple. HEART: Regular rate. LUNGS: Clear. ABDOMEN: Soft with minimal generalized vague tenderness to gentle palpation. EXTREMITIES: No edema. SKIN: Warm and dry. NEUROLOGIC: Awake and alert. LABORATORY DATA: The patient's labs were done. White blood cell count of 4.2, hemoglobin 10.9, hematocrit of 34.4, and platelet count of 189,000. Chem metabolic panel showing a potassium of 3.4, otherwise normal chem panel with a calcium of 7.2. INR was 1.02 yesterday. Urinalysis showing trace leukocyte esterase, otherwise negative. Urine culture showed no growth. The patient did have an EKG done yesterday, it was read as normal sinus rhythm, poor R wave progression. Chest x-ray was done 2 days prior, it was read as right-sided Port-A-Cath, no active disease. ASSESSMENT: Abdominal pain, rule out acute abdomen; von Willebrand disease; severe hypertension; short-gut syndrome; depression; constipation; and obesity. PLAN: After conversation with Dr. Sanchez is to continue present medical regimen with further testing as per Dr. Byrne's recommendations after her EGD and other testing is completed. We will monitor clinically and with labs, with analgesic to continue in the interim and IV fluids to continue for now. This is a complex patient with a comprehensive medically necessary and appropriate visit carried out in excess of 25 minutes with the patient's questions answered to her satisfaction. Benito Jacinto MD
[2018-10-09] MEDS: Morphine 2 mg/ml ISec IVP PRN ×5 (03:29→22:14)
[2018-10-09 06:23] LABS: BASO # 0.01 K/mm3 (0.0-2.0); BASO % 0.2 % (0.0-3.0); EOS # 0.1 (0.0-0.7); EOS % 2.8 % (1.5-5.0); GRAN # 2.17 (1.4-6.5); GRAN % 47.3 % (50.0-68.0); HEMOGLOBIN 11.1 g/dL (12.0-16.0); LYMPH # 1.8 (1.2-3.4); LYMPH % 39.9 % (22.0-35.0); MEAN CELL VOLUME 87.3 fl (80.0-105.0); MEAN CORPUSCULAR HEMOGLOBIN 27.7 pg (25.0-35.0); MEAN CORPUSCULAR HGB CONC 31.7 g/dl (31.0-37.0); MEAN PLATELET VOLUME 9.8 fl (7.0-11.0); MONO # 0.5 (0.1-0.6); MONO % 9.8 % (1.0-6.0); RBC 4.01 10^6/uL (3.5-6.1); RED CELL DISTRIBUTION WIDTH 13.8 % (11.5-14.5); WHITE BLOOD COUNT 4.6 10^3/uL (4.5-11.0)
[2018-10-09 06:43] LABS: ALB/GLOB RATIO 1.2 (1.1-1.8); ALBUMIN 3.1 g/dL (3.0-4.8); ALT/SGPT 21 U/L (7-56); AST/SGOT 16 U/L (14-36); BLOOD UREA NITROGEN 3 mg/dL (7-21); CALCIUM 7.5 mg/dL (8.4-10.5); GFR NON-AFRICAN AMERICAN > 60
[2018-10-09] MEDS: Sodium Chloride 0.9% 1,000 ML IV SCH ×2 (06:45→22:20)
[2018-10-09] MEDS ORDERED: Potassium Phosphate 3 mmol/ml Inj IV ONE (08:02)
[2018-10-09] MEDS ORDERED: Potassium Phosphate 30 MMOLE in Sodium Chloride 0.9% 250 ML IVPB ONE (08:15)
--- NOTE | 2018-10-09 09:30 | CP.PCM.PN ---
Subjective - Date & Time of Evaluation Date of Evaluation: 10/09/18 Time of Evaluation: 09:30 - Subjective Subjective: Hematology/Oncology Progress Note (Dr. Sanchez's Service) Patient seen and assessed at bedside. No acute events noted overnight. Patient continues to endorse moderate epigastric and general left sided abdominal pain that is only moderately relieved with PRN pain medications. Patient denies any further complaints at this time and 12 point ROS was unremarkable. Objective - Vital Signs/Intake and Output Vital Signs (last 24 hours): Temp Pulse Resp BP Pulse Ox 97.9 F 62 20 99/63 L 97 10/09/18 06:00 10/09/18 06:00 10/09/18 06:00 10/09/18 06:00 10/09/18 06:00 Intake and Output: 10/09/18 10/09/18 06:59 18:59 Intake Total 1000 Balance 1000 - Medications Medications: Current Medications Clonidine HCl (Catapres) 0.1 mg PO Q6 PRN PRN Reason: hypertension Sodium Chloride (Sodium Chloride 0.9%) 1,000 mls @ 100 mls/hr IV .Q10H [facility] Last Admin: 10/09/18 06:45 Dose: 100 mls/hr Potassium Chloride (Potassium Chloride 20 Meq/100 Ml) 20 meq in 100 mls @ 50 mls/hr IVPB Q2H [facility] Stop: 10/09/18 12:14 Last Admin: 10/09/18 08:31 Dose: 50 mls/hr Potassium Phosphate 30 mmole/ (Sodium Chloride) 260 mls @ 42.5 mls/hr IVPB ONCE ONE Stop: 10/09/18 14:22 Morphine Sulfate (Morphine) 2 mg IVP Q3H PRN PRN Reason: Pain, severe (8-10) Last Admin: 10/09/18 08:31 Dose: 2 mg Ondansetron HCl (Zofran Inj) 4 mg IVP Q6H PRN PRN Reason: Nausea/Vomiting Pantoprazole Sodium (Protonix Inj) 40 mg IVP DAILY [facility] Last Admin: 10/08/18 10:08 Dose: 40 mg Sucralfate (Carafate Oral Susp) 1 gm PO 1100,1600,2000 [facility] Last Admin: 10/08/18 20:22 Dose: 1 gm - Labs Labs: 10/09/18 06:00 10/09/18 06:00 PT 11.6 SECONDS (9.4-12.5) 10/07/18 20:15 INR 1.02 10/07/18 20:15 - Additional Findings Additional findings: - Constitutional Appears: Non-toxic, No Acute Distress - Head Exam Head Exam: ATRAUMATIC, NORMOCEPHALIC - Eye Exam Eye Exam: EOMI, Normal appearance - ENT Exam ENT Exam: Mucous Membranes Moist - Neck Exam Neck exam: Positive for: Full Rom - Respiratory Exam Respiratory Exam: Clear to Auscultation Bilateral, NORMAL BREATHING PATTERN. absent: Rales, Rhonchi, Wheezes - Cardiovascular Exam Cardiovascular Exam: REGULAR RHYTHM, RRR, +S1, +S2 - GI/Abdominal Exam GI & Abdominal Exam: Normal Bowel Sounds, Soft, Tenderness (TTP epigastric). absent: Distended, Firm, Guarding, Rebound - Rectal Exam Rectal Exam: Deferred - Extremities Exam Extremities exam: Negative for: calf tenderness - Neurological Exam Neurological exam: Alert, Oriented x3 - Psychiatric Exam Psychiatric exam: Normal Affect, Normal Mood - Skin Skin Exam: Dry, Intact, Warm Assessment and Plan - Assessment and Plan (Free Text) Assessment: 58 year old female with a past medical history significant for Von Willebrand's Disease, HTN and Short Gut Syndrome who presents with one day of diffuse abdominal cramping with two associated episodes of diarrhea. Plan: 1. Diffuse Abdominal Pain -Etiology: Dyspepsia vs. constipation with overflow diarrhea -MRA abdomen/pelvis w/wo contrast pending -EGD showed gastritis -MRCP showed unchanged pancreatic dilatation from 2013 -CT Abdomen/Pelvis showed dilated pancreatic duct to 4mm, increased stool burden in and previously seen duodenal diverticulum -Chest X-Ray showed no acute pulmonary disease -EKG showed normal sinus rhythm without ST segment changes -Amylase and Lipase within normal limits -UA negative for UTI -C. Diff serology negative -Norovirus and Salmonella serologies pending -Continue Pepcid, Protonix and Carafate -Continue Miralax -Continue Morphine 2mg Q3 PRN for severe pain control -Continue Zofran 4mg Q4 PRN for N/V -Continue NS at 100mls/hr -CLD; ADAT -No surgical interventions indicated at this time -GI and Surgery consulted, all recommendations appreciated 2. History of HTN -Continue Clonidine 0.1mg PO Q6 PRN -Nephrology consulted, all recommendations appreciated GI Prophylaxis: Protonix DVT Prophylaxis: SCD's Diet: CLD Code Status: Full Code Patient seen and case discussed with attending, Dr. Sanchez. Luis Carlos Ventura PGY2
--- NOTE | 2018-10-09 10:22 | CP.PCM.PN ---
Subjective - Date & Time of Evaluation Date of Evaluation: 10/09/18 Time of Evaluation: 08:00 - Subjective Subjective: General Surgery Progress Note for Dr. Styles 58F seen and evaluated at bedside this morning. No acute events overnight. Patient complains of abdominal pain when she had to go to the bathroom. Patient is ambulating. Denies f/c, n/v/d, SOB, CP, or urinary symptoms. Objective - Vital Signs/Intake and Output Vital Signs (last 24 hours): Temp Pulse Resp BP Pulse Ox 97.9 F 62 20 99/63 L 97 10/09/18 06:00 10/09/18 06:00 10/09/18 06:00 10/09/18 06:00 10/09/18 06:00 Intake and Output: 10/09/18 10/09/18 06:59 18:59 Intake Total 1000 Balance 1000 - Medications Medications: Current Medications Clonidine HCl (Catapres) 0.1 mg PO Q6 PRN PRN Reason: hypertension Sodium Chloride (Sodium Chloride 0.9%) 1,000 mls @ 100 mls/hr IV .Q10H [facility] Last Admin: 10/09/18 06:45 Dose: 100 mls/hr Potassium Chloride (Potassium Chloride 20 Meq/100 Ml) 20 meq in 100 mls @ 50 mls/hr IVPB Q2H [facility] Stop: 10/09/18 12:14 Last Admin: 10/09/18 08:31 Dose: 50 mls/hr Potassium Phosphate 30 mmole/ (Sodium Chloride) 260 mls @ 42.5 mls/hr IVPB ONCE ONE Stop: 10/09/18 14:22 Morphine Sulfate (Morphine) 2 mg IVP Q3H PRN PRN Reason: Pain, severe (8-10) Last Admin: 10/09/18 08:31 Dose: 2 mg Ondansetron HCl (Zofran Inj) 4 mg IVP Q6H PRN PRN Reason: Nausea/Vomiting Pantoprazole Sodium (Protonix Inj) 40 mg IVP DAILY [facility] Last Admin: 10/08/18 10:08 Dose: 40 mg Sucralfate (Carafate Oral Susp) 1 gm PO 1100,1600,2000 [facility] Last Admin: 10/08/18 20:22 Dose: 1 gm - Labs Labs: 10/09/18 06:00 10/09/18 06:00 PT 11.6 SECONDS (9.4-12.5) 10/07/18 20:15 INR 1.02 10/07/18 20:15 - Constitutional Appears: Well, Non-toxic, No Acute Distress - Head Exam Head Exam: ATRAUMATIC, NORMAL INSPECTION, NORMOCEPHALIC - Eye Exam Eye Exam: EOMI - ENT Exam ENT Exam: Mucous Membranes Moist - Respiratory Exam Respiratory Exam: NORMAL BREATHING PATTERN - GI/Abdominal Exam GI & Abdominal Exam: Soft, Normal Bowel Sounds. absent: Distended, Tenderness - Neurological Exam Neurological Exam: Alert, Awake, Oriented x3 - Psychiatric Exam Psychiatric exam: Normal Affect, Normal Mood - Skin Skin Exam: Dry, Intact, Normal Color, Warm Assessment and Plan - Assessment and Plan (Free Text) Assessment: 58F w/ abdominal pain likely 2/2 duodenal diverticulum Plan: Follow up recommendations from GI Anagelsics and antiemetics PRN Liquid diet - ADAT IVF Replete electrolytes as needed Further recommendations per Dr. Swapna Gruber PGY1
[2018-10-09] MEDS: Sucralfate 1 gm/10 ml Oral Susp UD PO SCH ×3 (10:33→22:14)
[2018-10-09] MEDS ORDERED: Bisacodyl 5mg EC Tab PO ONE ×2 (10:53→16:01)
--- NOTE | 2018-10-09 11:02 | CP.PCM.PN ---
<Mamie Hameed - Last Filed: 10/09/18 11:17> Subjective - Date & Time of Evaluation Date of Evaluation: 10/09/18 Time of Evaluation: 10:56 - Subjective Subjective: Gastroenterology Fellow/PGY6 Progress Note Patient notes continued mid-upper abdominal pain. Notes prior history of constipation while having loose stools with use of Miralax and colace leading to daily soft stools. Tolerating clear liquid diet. Admits to two watery stools yesterday. A 12-point review of systems negative except for as above. Objective - Vital Signs/Intake and Output Vital Signs (last 24 hours): Temp Pulse Resp BP Pulse Ox 97.9 F 62 20 99/63 L 97 10/09/18 06:00 10/09/18 06:00 10/09/18 06:00 10/09/18 06:00 10/09/18 06:00 Intake and Output: 10/09/18 10/09/18 06:59 18:59 Intake Total 1000 Balance 1000 - Medications Medications: Current Medications Bisacodyl (Dulcolax) 10 mg PO ONCE ONE Stop: 10/09/18 10:54 Clonidine HCl (Catapres) 0.1 mg PO Q6 PRN PRN Reason: hypertension Sodium Chloride (Sodium Chloride 0.9%) 1,000 mls @ 100 mls/hr IV .Q10H [facility] Last Admin: 10/09/18 06:45 Dose: 100 mls/hr Potassium Chloride (Potassium Chloride 20 Meq/100 Ml) 20 meq in 100 mls @ 50 mls/hr IVPB Q2H [facility] Stop: 10/09/18 12:14 Last Admin: 10/09/18 10:34 Dose: 50 mls/hr Potassium Phosphate 30 mmole/ (Sodium Chloride) 260 mls @ 42.5 mls/hr IVPB ONCE ONE Stop: 10/09/18 14:22 Morphine Sulfate (Morphine) 2 mg IVP Q3H PRN PRN Reason: Pain, severe (8-10) Last Admin: 10/09/18 08:31 Dose: 2 mg Ondansetron HCl (Zofran Inj) 4 mg IVP Q6H PRN PRN Reason: Nausea/Vomiting Pantoprazole Sodium (Protonix Inj) 40 mg IVP DAILY [facility] Last Admin: 10/09/18 10:33 Dose: 40 mg Polyethylene Glycol (Miralax) 17 gm PO DAILY [facility] Sucralfate (Carafate Oral Susp) 1 gm PO 1100,1600,2000 [facility] Last Admin: 10/09/18 10:33 Dose: 1 gm - Labs Labs: 10/09/18 06:00 10/09/18 06:00 PT 11.6 SECONDS (9.4-12.5) 10/07/18 20:15 INR 1.02 10/07/18 20:15 - Constitutional Appears: Non-toxic, No Acute Distress - Head Exam Head Exam: ATRAUMATIC, NORMOCEPHALIC - Eye Exam Eye Exam: EOMI, PERRL. absent: Scleral icterus Pupil Exam: PERRL. absent: Miosis, Mydriatic - ENT Exam ENT Exam: Mucous Membranes Moist, Normal Oropharynx - Neck Exam Neck Exam: Full ROM, Normal Inspection - Respiratory Exam Respiratory Exam: Clear to Ausculation Bilateral. absent: Rales, Rhonchi, Wheezes - Cardiovascular Exam Cardiovascular Exam: RRR, +S1, +S2. absent: Gallop, Rubs - GI/Abdominal Exam GI & Abdominal Exam: Soft, Tenderness, Normal Bowel Sounds. absent: Distended, Firm, Guarding, Rigid, Organomegaly, Rebound Additional comments: supra-umbilical tenderness to palpation - Extremities Exam Extremities Exam: Normal Inspection. absent: Pedal Edema - Neurological Exam Neurological Exam: Alert, Awake - Psychiatric Exam Psychiatric exam: Normal Affect, Normal Mood - Skin Skin Exam: Dry, Intact, Normal Color, Warm Assessment and Plan - Assessment and Plan (Free Text) Assessment: 58 year old female with PMH of von Willebrand's, short gut syndrome s/p multiple intestinal resections 2/2 bowel obstruction/small bowel infarct/Cdiff colitis/SIBO, and cholecystectomy presenting with abdominal pain. Active treatment of intractable abdominal pain. Prior colonoscopy 07/2018 showed ileo colonic anastomosis and colocolonic anastomosis, diverticulosis, internal hemorrhoids, and 6mm inflammatory polyp. EGD 08/2012 showed H. pylori negative gastritis. Plan: -DDx- dyspepsia, constipation with possible overflow diarrhea -POD1 (10/08) EGD showed gastritis, ampulla assessed with side-viewing duodenoscope- no abnormalities noted, patent -CT A/P IV contrast- increased stool burden ascending/transverse colon -start Miralax daily, Dulcolax 10mg once ordered -continue PPI ACB, pepcid QHS, and carafate -supportive care- anti-emetics, pain control -avoids NSAIDs and narcotics -will follow clinical course <Jonnathan Byrne V - Last Filed: 10/09/18 23:08> Objective - Vital Signs/Intake and Output Vital Signs (last 24 hours): Temp Pulse Resp BP Pulse Ox 97.9 F 67 20 121/81 96 10/09/18 17:14 10/09/18 17:14 10/09/18 17:14 10/09/18 17:14 10/09/18 17:14 Intake and Output: 10/09/18 10/10/18 18:59 06:59 Intake Total 1400 Balance 1400 - Medications Medications: Current Medications Clonidine HCl (Catapres) 0.1 mg PO Q6 PRN PRN Reason: hypertension Famotidine (Pepcid) 40 mg PO HS [facility] Last Admin: 10/09/18 22:19 Dose: 40 mg Sodium Chloride (Sodium Chloride 0.9%) 1,000 mls @ 100 mls/hr IV .Q10H [facility] Last Admin: 10/09/18 22:20 Dose: 100 mls/hr Morphine Sulfate (Morphine) 2 mg IVP Q3H PRN PRN Reason: Pain, severe (8-10) Last Admin: 10/09/18 22:14 Dose: 2 mg Ondansetron HCl (Zofran Inj) 4 mg IVP Q6H PRN PRN Reason: Nausea/Vomiting Pantoprazole Sodium (Protonix Ec Tab) 40 mg PO 0600 [facility] Polyethylene Glycol (Miralax) 17 gm PO DAILY [facility] Last Admin: 10/09/18 17:07 Dose: 17 gm Sucralfate (Carafate Oral Susp) 1 gm PO 1100,1600,2000 [facility] Last Admin: 10/09/18 22:14 Dose: 1 gm - Labs Labs: 10/09/18 06:00 10/09/18 06:00 PT 11.6 SECONDS (9.4-12.5) 10/07/18 20:15 INR 1.02 10/07/18 20:15 Attending/Attestation - Attestation I have personally seen and examined this patient.: Yes I have fully participated in the care of the patient.: Yes I have reviewed all pertinent clinical information, including history, physical exam and plan: Yes Notes (Text): This is an addendum to GI progress report dictated by the GI Fellow.The patient was seen and examined earlier. Medical records, lab studies, imagings were reviewed. Last 24 hours events reviewed. Agreed with the above treatment plan as outlined in GI Fellow 's notes with the addition of the following Patient still complains of abdominal pain Burning sensation after eating a small amount of meal On examination abdomen soft mild tenderness present in the epigastric and periumbilical area Previous imaging studies reviewed Large amount of stool in the right colon Partially could be contributory factor However in view of her symptoms, she would benefit from MRA to evaluate mesenteric and celiac arteries Start the patient on Miralax Patient is on chronic pain mediation and this can contribute to gastroparesis constipation and slow motility 10/09/18 23:03
[2018-10-09] MEDS: POLYETHYLENE GLYCOL 3350 17 GM/Dose PACKET PO SCH ×2 (12:51→17:07)
--- NOTE | 2018-10-09 13:08 | PN ---
DATE: 10/08/2018 SUBJECTIVE: The patient is seen lying in bed. She is awake. She is alert. She still complains of abdominal pain. She denies any nausea or vomiting. She reports she had multiple dark bowel movements today. PHYSICAL EXAMINATION GENERAL: Middle-aged lady, lying in bed. VITAL SIGNS: Blood pressure 99/53, heart rate 62, respiratory rate 20, temperature 97.9. HEENT: Normocephalic, atraumatic, positive pallor. NECK: Supple, no JVD. LUNGS: Bilateral equal air entry, bilateral equal expansion. CARDIAC: S1, S2. Regular rate, rhythm. No murmur, no rub. ABDOMEN: Distended, soft, positive tenderness in the mid abdomen, bowel sounds present. EXTREMITIES: No lower extremity edema. Intake and output 23, 20/not charted. LABORATORY DATA: WBC 4, hemoglobin 11, hematocrit 35, platelets 184. Sodium 140, potassium 3.5, chloride 110, CO2 of 27, BUN 3, creatinine 0.6, glucose 86, calcium 7.5, phosphorus 2.3, magnesium 2.2, albumin 3.1, corrected calcium is 8.1. Stool for C. diff negative. Urine culture no growth. MRCP done yesterday shows chronic mild dilatation of the pancreatic duct. No evidence of common bile duct stone. CURRENT MEDICATIONS: Carafate, Catapres, MiraLax, morphine, Pepcid, potassium 20 mEq x2 doses, potassium phosphate 30 millimoles, Protonix, normal saline at 100, Zofran. ASSESSMENT 1. Abdominal pain,? etiology. 2. Hypocalcemia. 3. Hypokalemia. 4. Hypophosphatemia. 5. Hypertension, currently blood pressure is low. PLAN 1. Check vitamin D. 2. Agree with potassium supplementation. 3. Agree with phosphate supplementation. 4. Calcium gluconate IV piggyback x1 dose. Thea Ricardo MD
[2018-10-09] MEDS ORDERED: Aluminum Hydrox Gel 320 mg/5 ml Susp(480 ml) PO PRN (17:00)
[2018-10-10] MEDS: Morphine 2 mg/ml ISec IVP PRN ×2 (01:14→06:03)
[2018-10-10] MEDS: Pantoprazole 40 mg EC Tab PO SCH (06:03)
[2018-10-10 07:29] LABS: BASO # 0.01 K/mm3 (0.0-2.0); BASO % 0.2 % (0.0-3.0); EOS # 0.2 (0.0-0.7); EOS % 3.1 % (1.5-5.0); GRAN # 2.27 (1.4-6.5); GRAN % 44.5 % (50.0-68.0); HEMOGLOBIN 11.6 g/dL (12.0-16.0); LYMPH # 2.4 (1.2-3.4); LYMPH % 46.5 % (22.0-35.0); MEAN CELL VOLUME 86.5 fl (80.0-105.0); MEAN CORPUSCULAR HEMOGLOBIN 28.5 pg (25.0-35.0); MEAN PLATELET VOLUME 9.7 fl (7.0-11.0); MONO # 0.3 (0.1-0.6); MONO % 5.7 % (1.0-6.0); RBC 4.07 10^6/uL (3.5-6.1); RED CELL DISTRIBUTION WIDTH 13.6 % (11.5-14.5); WHITE BLOOD COUNT 5.1 10^3/uL (4.5-11.0)
[2018-10-10] MEDS: Sodium Chloride 0.9% 1,000 ML IV SCH (07:44)
[2018-10-10 07:46] LABS: ALB/GLOB RATIO 1.1 (1.1-1.8); ALBUMIN 3.4 g/dL (3.0-4.8); ALT/SGPT 22 U/L (7-56); AST/SGOT 16 U/L (14-36); BLOOD UREA NITROGEN < 2 mg/dL (7-21); CALCIUM 7.8 mg/dL (8.4-10.5); GFR NON-AFRICAN AMERICAN > 60
[2018-10-10] MEDS: POLYETHYLENE GLYCOL 3350 17 GM/Dose PACKET PO SCH ×2 (09:24→18:51)
[2018-10-10] MEDS: Potassium & Sodium Phosphate PO SCH ×2 (09:25→17:25)
--- NOTE | 2018-10-10 09:38 | CP.PCM.PN ---
Subjective - Date & Time of Evaluation Date of Evaluation: 10/10/18 Time of Evaluation: 06:50 - Subjective Subjective: Surgery- Dr. Styles Patient seen and examined at bedside. Abdominal pain improved from yesterday. Tolerating current diet. Denies nausea, vomiting. + OOB. denies BM over last 24hours. Plan for MRA of abdomen today. Objective - Vital Signs/Intake and Output Vital Signs (last 24 hours): Temp Pulse Resp BP Pulse Ox 98 F 74 18 124/89 99 10/10/18 08:05 10/10/18 08:05 10/10/18 08:05 10/10/18 08:05 10/10/18 08:05 Intake and Output: 10/10/18 10/10/18 06:59 18:59 Intake Total 2280 Output Total 3 Balance 2277 - Medications Medications: Current Medications Clonidine HCl (Catapres) 0.1 mg PO Q6 PRN PRN Reason: hypertension Famotidine (Pepcid) 40 mg PO HS [facility] Last Admin: 10/09/18 22:19 Dose: 40 mg Sodium Chloride (Sodium Chloride 0.9%) 1,000 mls @ 100 mls/hr IV .Q10H [facility] Last Admin: 10/10/18 07:44 Dose: 100 mls/hr Potassium Chloride (Potassium Chloride 20 Meq/100 Ml) 20 meq in 100 mls @ 50 mls/hr IVPB ONCE ONE Stop: 10/10/18 11:04 Last Admin: 10/10/18 09:25 Dose: 50 mls/hr Morphine Sulfate (Morphine) 2 mg IVP Q3H PRN PRN Reason: Pain, severe (8-10) Last Admin: 10/10/18 06:03 Dose: 2 mg Ondansetron HCl (Zofran Inj) 4 mg IVP Q6H PRN PRN Reason: Nausea/Vomiting Pantoprazole Sodium (Protonix Ec Tab) 40 mg PO 0600 [facility] Last Admin: 10/10/18 06:03 Dose: 40 mg Polyethylene Glycol (Miralax) 17 gm PO DAILY [facility] Last Admin: 10/10/18 09:24 Dose: 17 gm Potassium Phos/Sodium Phos (Neutra-Phos) 1 pkt PO BID [facility] Last Admin: 10/10/18 09:25 Dose: 1 pkt Sucralfate (Carafate Oral Susp) 1 gm PO 1100,1600,2000 [facility] Last Admin: 10/09/18 22:14 Dose: 1 gm - Labs Labs: 10/10/18 06:12 10/10/18 06:12 PT 11.6 SECONDS (9.4-12.5) 10/07/18 20:15 INR 1.02 10/07/18 20:15 - Constitutional Appears: Non-toxic, No Acute Distress - Head Exam Head Exam: ATRAUMATIC - Eye Exam Eye Exam: EOMI. absent: Scleral icterus - ENT Exam ENT Exam: Mucous Membranes Moist - Respiratory Exam Respiratory Exam: NORMAL BREATHING PATTERN. absent: Accessory Muscle Use, Respiratory Distress - Cardiovascular Exam Cardiovascular Exam: +S1, +S2. absent: Bradycardia, Tachycardia - GI/Abdominal Exam GI & Abdominal Exam: Soft, Tenderness (diffusely tender). absent: Distended, Firm, Guarding, Rigid, Mass, Organomegaly - Extremities Exam Extremities Exam: absent: Calf Tenderness - Neurological Exam Neurological Exam: Alert, Awake, Oriented x3 - Skin Skin Exam: Intact, Warm Assessment and Plan - Assessment and Plan (Free Text) Assessment: 58F hx of multiple abdominal surgeries and SBR, w/ abdominal pain 2/2 ? duodenal diverticulum Plan: - pain control PRN - bowel regiment - recommend OOB to chair and ambulation - plan for MRA for evaluation of blood supply - dvt ppx - discussed w/ Dr. Jensen Mitchell PGY2
[2018-10-10] MEDS ORDERED: POLYETHYLENE GLYCOL 3350 17 GM/Dose PACKET PO SCH (10:00)
--- NOTE | 2018-10-10 10:58 | CP.PCM.PN ---
<Vaishali Sarah - Last Filed: 10/10/18 10:54> Subjective - Date & Time of Evaluation Date of Evaluation: 10/10/18 Time of Evaluation: 08:00 - Subjective Subjective: GI Fellow PGY5 Progress Note Pt seen and evaluated at bedside, pt reports same abdominal pain. Small liquid stool. ROS: A 12pt ROS was negative except as above. Objective - Vital Signs/Intake and Output Vital Signs (last 24 hours): Temp Pulse Resp BP Pulse Ox 98 F 74 18 124/89 99 10/10/18 08:05 10/10/18 08:05 10/10/18 08:05 10/10/18 08:05 10/10/18 08:05 Intake and Output: 10/10/18 10/10/18 06:59 18:59 Intake Total 2280 Output Total 3 Balance 2277 - Medications Medications: Current Medications Clonidine HCl (Catapres) 0.1 mg PO Q6 PRN PRN Reason: hypertension Famotidine (Pepcid) 40 mg PO HS [facility] Last Admin: 10/09/18 22:19 Dose: 40 mg Potassium Chloride (Potassium Chloride 20 Meq/100 Ml) 20 meq in 100 mls @ 50 mls/hr IVPB ONCE ONE Stop: 10/10/18 11:04 Last Admin: 10/10/18 09:25 Dose: 50 mls/hr Potassium Phosphate 20 mmole/ (Sodium Chloride) 1,006.6667 mls @ 100 mls/hr IV .Q10H4M [facility] Morphine Sulfate (Morphine) 2 mg IVP Q3H PRN PRN Reason: Pain, severe (8-10) Last Admin: 10/10/18 06:03 Dose: 2 mg Ondansetron HCl (Zofran Inj) 4 mg IVP Q6H PRN PRN Reason: Nausea/Vomiting Pantoprazole Sodium (Protonix Ec Tab) 40 mg PO 0600 [facility] Last Admin: 10/10/18 06:03 Dose: 40 mg Polyethylene Glycol (Miralax) 17 gm PO BID [facility] Potassium Phos/Sodium Phos (Neutra-Phos) 1 pkt PO BID [facility] Last Admin: 10/10/18 09:25 Dose: 1 pkt Sucralfate (Carafate Oral Susp) 1 gm PO 1100,1600,2000 [facility] Last Admin: 10/09/18 22:14 Dose: 1 gm - Labs Labs: 10/10/18 06:12 10/10/18 06:12 PT 11.6 SECONDS (9.4-12.5) 10/07/18 20:15 INR 1.02 10/07/18 20:15 - Constitutional Appears: Non-toxic, No Acute Distress - Head Exam Head Exam: ATRAUMATIC, NORMAL INSPECTION, NORMOCEPHALIC - Eye Exam Eye Exam: EOMI, Normal appearance - Cardiovascular Exam Cardiovascular Exam: REGULAR RHYTHM, +S1, +S2 - GI/Abdominal Exam GI & Abdominal Exam: Soft, Normal Bowel Sounds. 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 Active treatment of intractable abdominal pain. Prior colonoscopy 07/2018 showed ileocolonic anastomosis and colocolonic anastomosis, diverticulosis, internal hemorrhoids, and 6mm inflammatory polyp. EGD 08/2012 showed H. pylori negative gastritis. 1. Constipation 2. Short gut 3. Gastroparesis 4. Abdominal pain Plan: -Constipation with possible overflow diarrhea -Contiue bowel regimen with miralax bid -(10/08) EGD showed gastritis, ampulla assessed with side-viewing duodenoscope- no abnormalities noted, patent -CT A/P IV contrast- increased stool burden ascending/transverse colon -continue PPI ACB, pepcid QHS, and carafate -supportive care- anti-emetics, pain control -avoids NSAIDs and narcotics -Surgery plans for MRA -Advance to pureed diet with small frequent meals -will follow clinical course <Jonnathan Byrne V - Last Filed: 10/10/18 23:26> Objective - Vital Signs/Intake and Output Vital Signs (last 24 hours): Temp Pulse Resp BP Pulse Ox 98.0 F 74 19 161/110 H 98 10/10/18 17:12 10/10/18 17:24 10/10/18 17:12 10/10/18 17:24 10/10/18 17:12 Intake and Output: 10/10/18 10/11/18 18:59 06:59 Intake Total 2160 Balance 2160 - Medications Medications: Current Medications Clonidine HCl (Catapres) 0.1 mg PO Q6 PRN PRN Reason: hypertension Last Admin: 10/10/18 17:24 Dose: 0.1 mg Famotidine (Pepcid) 40 mg PO HS [facility] Last Admin: 10/10/18 21:15 Dose: 40 mg Potassium Phosphate 20 mmole/ (Sodium Chloride) 1,006.6667 mls @ 100 mls/hr IV .Q10H4M [facility] Last Admin: 10/10/18 14:59 Dose: 100 mls/hr Morphine Sulfate (Morphine) 2 mg IVP Q3H PRN PRN Reason: Pain, severe (8-10) Last Admin: 10/10/18 18:50 Dose: 2 mg Ondansetron HCl (Zofran Inj) 4 mg IVP Q6H PRN PRN Reason: Nausea/Vomiting Pantoprazole Sodium (Protonix Ec Tab) 40 mg PO 0600 [facility] Last Admin: 10/10/18 06:03 Dose: 40 mg Polyethylene Glycol (Miralax) 17 gm PO TID [facility] Last Admin: 10/10/18 18:51 Dose: 17 gm Potassium Phos/Sodium Phos (Neutra-Phos) 1 pkt PO BID [facility] Last Admin: 10/10/18 17:25 Dose: 1 pkt Sucralfate (Carafate Oral Susp) 1 gm PO 1100,1600,2000 [facility] Last Admin: 10/10/18 21:15 Dose: 1 gm - Labs Labs: 10/10/18 06:12 10/10/18 06:12 PT 11.6 SECONDS (9.4-12.5) 10/07/18 20:15 INR 1.02 10/07/18 20:15 Attending/Attestation - Attestation I have personally seen and examined this patient.: Yes I have fully participated in the care of the patient.: Yes I have reviewed all pertinent clinical information, including history, physical exam and plan: Yes Notes (Text): This is an addendum to GI consult report dictated by the GI Fellow.The patient was seen and examined earlier. Medical records, lab studies, imagings were reviewed. Last 24 hours events reviewed. Agreed with the above treatment plan as outlined in GI Fellow 's notes with the addition of the following 10/10/18 23:26
[2018-10-10] MEDS: Morphine 4 mg/ml ISec IVP PRN ×2 (11:06→18:50)
[2018-10-10] MEDS: Potassium Phosphate 20 MMOLE in Sodium Chloride 0.9% 1,000 ML IV SCH (14:59)
[2018-10-10] MEDS: Sucralfate 1 gm/10 ml Oral Susp UD PO SCH ×3 (15:00→21:15)
[2018-10-11] MEDS: Morphine 4 mg/ml ISec IVP PRN ×4 (00:23→20:49)
[2018-10-11] MEDS: Potassium Phosphate 20 MMOLE in Sodium Chloride 0.9% 1,000 ML IV SCH ×3 (00:24→23:38)
[2018-10-11] MEDS: Pantoprazole 40 mg EC Tab PO SCH (05:56)
[2018-10-11 06:43] LABS: BASO # 0.01 K/mm3 (0.0-2.0); BASO % 0.2 % (0.0-3.0); EOS # 0.2 (0.0-0.7); EOS % 3.8 % (1.5-5.0); GRAN # 2.29 (1.4-6.5); GRAN % 51.5 % (50.0-68.0); HEMOGLOBIN 11.2 g/dL (12.0-16.0); LYMPH # 1.8 (1.2-3.4); LYMPH % 39.6 % (22.0-35.0); MEAN CELL VOLUME 85.9 fl (80.0-105.0); MEAN CORPUSCULAR HEMOGLOBIN 27.7 pg (25.0-35.0); MEAN CORPUSCULAR HGB CONC 32.3 g/dl (31.0-37.0); MEAN PLATELET VOLUME 9.6 fl (7.0-11.0); MONO # 0.2 (0.1-0.6); MONO % 4.9 % (1.0-6.0); RBC 4.04 10^6/uL (3.5-6.1); RED CELL DISTRIBUTION WIDTH 13.6 % (11.5-14.5); WHITE BLOOD COUNT 4.5 10^3/uL (4.5-11.0)
--- NOTE | 2018-10-11 08:17 | CP.PCM.PN ---
Subjective - Date & Time of Evaluation Date of Evaluation: 10/11/18 Time of Evaluation: 08:14 - Subjective Subjective: Surgery- Dr. Styles Patient seen and examined at bedside. Abdominal pain improved from yesterday. Tolerating current diet. Denies nausea, vomiting. + OOB. small BM yesterday. Plan for MRA of abdomen today. Objective - Vital Signs/Intake and Output Vital Signs (last 24 hours): Temp Pulse Resp BP Pulse Ox 98 F 63 20 136/89 99 10/11/18 07:46 10/11/18 07:46 10/11/18 07:46 10/11/18 07:46 10/11/18 07:46 Intake and Output: 10/11/18 10/11/18 06:59 18:59 Intake Total 1440 Balance 1440 - Medications Medications: Current Medications Clonidine HCl (Catapres) 0.1 mg PO Q6 PRN PRN Reason: hypertension Last Admin: 10/10/18 17:24 Dose: 0.1 mg Famotidine (Pepcid) 40 mg PO HS [facility] Last Admin: 10/10/18 21:15 Dose: 40 mg Potassium Phosphate 20 mmole/ (Sodium Chloride) 1,006.6667 mls @ 100 mls/hr IV .Q10H4M [facility] Last Admin: 10/11/18 00:24 Dose: 100 mls/hr Morphine Sulfate (Morphine) 2 mg IVP Q3H PRN PRN Reason: Pain, severe (8-10) Last Admin: 10/11/18 00:23 Dose: 2 mg Ondansetron HCl (Zofran Inj) 4 mg IVP Q6H PRN PRN Reason: Nausea/Vomiting Pantoprazole Sodium (Protonix Ec Tab) 40 mg PO 0600 [facility] Last Admin: 10/11/18 05:56 Dose: 40 mg Polyethylene Glycol (Miralax) 17 gm PO TID [facility] Last Admin: 10/10/18 18:51 Dose: 17 gm Potassium Phos/Sodium Phos (Neutra-Phos) 1 pkt PO BID [facility] Last Admin: 10/10/18 17:25 Dose: 1 pkt Sucralfate (Carafate Oral Susp) 1 gm PO 1100,1600,2000 [facility] Last Admin: 10/10/18 21:15 Dose: 1 gm - Labs Labs: 10/11/18 06:00 10/10/18 06:12 PT 11.6 SECONDS (9.4-12.5) 10/07/18 20:15 INR 1.02 10/07/18 20:15 - Constitutional Appears: Non-toxic, No Acute Distress - Head Exam Head Exam: ATRAUMATIC - Eye Exam Eye Exam: EOMI. absent: Scleral icterus - ENT Exam ENT Exam: Mucous Membranes Moist - Respiratory Exam Respiratory Exam: NORMAL BREATHING PATTERN. absent: Accessory Muscle Use, Respiratory Distress - Cardiovascular Exam Cardiovascular Exam: +S1, +S2. absent: Bradycardia, Tachycardia - GI/Abdominal Exam GI & Abdominal Exam: Soft, Tenderness (Mildly tender to deep palpation right abdomen). absent: Distended, Firm, Guarding, Rigid - Extremities Exam Extremities Exam: absent: Calf Tenderness - Neurological Exam Neurological Exam: Alert, Awake, Oriented x3 Assessment and Plan - Assessment and Plan (Free Text) Assessment: 58F hx of multiple abdominal surgeries and SBR, w/ abdominal pain 2/2 ? duodenal diverticulum Plan: - pain control PRN - bowel regiment - recommend OOB to chair and ambulation - plan for MRA for evaluation of blood supply - dvt ppx - discussed w/ Dr. Jensen Mitchell PGY2
[2018-10-11 08:38] LABS: ALB/GLOB RATIO 1.1 (1.1-1.8); ALBUMIN 3.2 g/dL (3.0-4.8); ALT/SGPT 22 U/L (7-56); AST/SGOT 14 U/L (14-36); BLOOD UREA NITROGEN < 2 mg/dL (7-21); CALCIUM 7.5 mg/dL (8.4-10.5); GFR NON-AFRICAN AMERICAN > 60
[2018-10-11] MEDS: POLYETHYLENE GLYCOL 3350 17 GM/Dose PACKET PO SCH ×4 (09:12→21:40)
[2018-10-11] MEDS: Potassium & Sodium Phosphate PO SCH ×2 (09:14→18:06)
[2018-10-11] MEDS: Sucralfate 1 gm/10 ml Oral Susp UD PO SCH ×3 (11:13→20:49)
[2018-10-11] MEDS ORDERED: Gadodiamide 287 MG/ML VIAL (20ML) IV ONE (13:27)
[2018-10-11] MEDS ORDERED: Ergocalciferol 50,000 Intl Units Cap PO SCH (13:45)
[2018-10-11] MEDS ORDERED: Magnesium Citrate Oral SOL (300 ml) PO ONE (14:00)
--- NOTE | 2018-10-11 15:00 | PN ---
DATE: 10/10/2018 SUBJECTIVE: The patient is seen sitting in bed. She is eating a soft pureed diet. She reports pain is somewhat better. She also reports some constipation. She got some laxative earlier. She is waiting to go to the bathroom. PHYSICAL EXAMINATION: GENERAL: Middle-aged lady sitting in bed. VITAL SIGNS: Blood pressure 124/89, heart rate 83, respiratory rate 20, temperature 98. HEENT: Normocephalic, atraumatic, positive pallor. NECK: Supple, no JVD. LUNGS: Bilateral equal air entry, bilateral equal expansion, no rales. CARDIAC: S1 and S2, regular rate and rhythm, no murmur, no rub. ABDOMEN: Soft, nondistended, positive tenderness, bowel sounds present. EXTREMITIES: No lower extremity edema. LABORATORY DATA: WBC 5, hemoglobin 11.6, hematocrit 35, platelets 204,000. Sodium 142, potassium 3.3, chloride 110, CO2 of 27, BUN less than 2, creatinine 0.6, glucose 82, calcium 7.8, magnesium 2.1, phosphorus 1.9.. Albumin 3.4. Corrected calcium is 8.4. ASSESSMENT: 1. Abdominal pain ? Pancreatic inflammation? Constipation. 2. Hypokalemia. 3. Hypophosphatemia. 4. Hypomagnesemia. 5. Hypocalcemia. PLAN: 1. Continue IV fluids with potassium phosphate. 2. Agree with Neutra-Phos. 3. Agree with mag rider. 4. Start Drisdol, continue treatment for constipation. Thea Ricardo MD
--- NOTE | 2018-10-11 16:29 | MRI ---
MRA abdomen without/with IV contrast MRI pelvis without/with IV contrast Indication: intractable abdominal pain, short gut syndrome Technique: Multiplanar, multi sequence magnetic resonance images of the abdomen were obtained without and with the administration of intravenous gadolinium. A total of 652 images submitted under MRA abdomen 573 images submitted under MRI pelvis. Comparison: CT of the abdomen and pelvis performed with IV contrast 10/06/18, MRCP/abdomen without and with IV contrast performed 10/08/18 Findings: Markedly limited examination due to artifact including respiratory/motion. No evidence of aneurysmal dilatation of the aorta. Thin T2 hypointense linear structure noted within the proximal superior mesenteric artery appears to reflect artifact. A review of this region on CT with contrast performed 10/06/18 demonstrates no appreciable abnormality. No aneurysmal dilatation of bilateral common iliac arteries. Limited visualization of the proximal celiac artery, superior mesenteric artery, and inferior mesenteric artery appear grossly unremarkable. Bilateral renal artery origins appear patent. Suboptimal evaluation of solid organs. Please refer to MR abdomen/MRCP performed 10/08/18. Impression: Markedly limited examination. No evidence of aneurysmal dilatation of the aorta. Thin T2 hypointense linear structure noted within the proximal superior mesenteric artery appears to reflect artifact rather than dissection. A review of this region on CT with contrast performed 10/06/18 demonstrates no appreciable abnormality or evidence of dissection. The patient's nurse Kimi was notified of the above findings on 10/11/18 at 4:19 p.m.
--- NOTE | 2018-10-11 21:08 | PN ---
DATE: 10/11/2018 LOCATION: The patient is in room 369, bed 2. SUBJECTIVE: The patient is seen sitting up in the bed, she was just in the bathroom. She has been having just bowel movements that are mostly brownish, liquid in nature with very small pebble-like stools. The patient had severe epigastric and periumbilical pain early this morning, so she had required two doses of IV narcotics, morphine 2 mg 6 hours apart. She has been eating a soft pureed diet. The patient has been getting a combination of MiraLax along with stool softeners to see if the constipation that was seen on the CAT scan high up on the small bowel could be relieved by giving the MiraLax. Hopefully, this along with the spurious diarrhea that she was having will improve with ongoing treatment. The patient is still on IV fluids with replacement of potassium and also oral Neutra-Phos as her phosphorus was also very low. She has been scheduled to go for an MRI today in the afternoon to rule out mesenteric ischemia as a cause for the rather severe pain. The patient denies any history of fevers or chills. No significant nausea or vomiting today. PHYSICAL EXAMINATION: GENERAL: Patient is awake, alert, and oriented, in no significant distress. The patient appears to be tired and washed out this morning. She was not having a good night during the night hours yesterday. The patient is examined at bedside. VITAL SIGNS: T-max is 98.4, pulse is 63, blood pressure is 136/89 with a mean blood pressure systolic of 104, respiration is 20, O2 saturation is 99% on room air. HEENT: Head is normocephalic, atraumatic. Conjunctivae pale. Sclerae are anicteric. Pupils are equally reactive to light and accommodation. Examination of the oropharynx, there is no oropharyngeal lesions. Tongue is moist. No ulcerations are noted. NECK: Supple. There is no adenopathy. No jugular venous distention noted. LUNGS: Clear to percussion and auscultation. CARDIOVASCULAR: Reveals PMI in the fifth intercostal space, inside the midclavicular line. S1 and S2 are normal. No gallop or murmur is heard. ABDOMEN: Soft and mildly distended. The patient is complaining of severe epigastric and periumbilical pain. There is some vague right lower quadrant tenderness as well. No rebound, rigidity, or guarding is noted. GENITOURINARY AND RECTAL: Deferred. EXTREMITIES: Examination of lower extremities reveals no significant edema or cyanosis. Homans signs is negative. NEUROLOGIC: Reveals higher functions to be normal. No focal deficits are noted. SKIN: Turgor is decreased. No skin lesions are noted. LABORATORY DATA: From today reveals a white count of 4.5, hemoglobin 11.2, hematocrit 34.7, platelet count of 197,000. Sodium is 143, potassium is 3.6, chloride is 114. BUN of 2, creatinine of 0.5, calcium is low at 7.5, phosphorus is 2.8, albumin is 3.2 with a total protein of 6.2, vitamin D is 26.4. MEDICATIONS: The patient's medications were reviewed. They reveal the following: The patient is on Carafate 1 g p.o. b.i.d., Catapres 0.1 mg p.o. every 6 hours p.r.n. for blood pressure greater than 150 of systolic and diastolic greater than 100. The patient has been started on ergocalciferol 50,000 units once daily, MiraLax 17 g p.o. t.i.d. She is on morphine 2 mg IV every 3 hours p.r.n. She is on Neutra-Phos 1 pack at b.i.d., Pepcid 40 mg p.o. at bedtime. She is on IV fluids with potassium phosphate 100 mL an hour. She is on pantoprazole 40 mg daily, Zofran 4 mg IV every 6 hours p.r.n. ASSESSMENT, NOTES AND PLAN: The patient has multiple electrolyte abnormalities with hypophosphatemia, hypomagnesemia, and hypocalcemia, on treatments at this point in time with vague abdominal pains that is excruciating at times, intestinal ischemia is being looked into the differential diagnosis. The patient has had multiple surgeries in the past that she has complex medical issues and be difficult to determine what this pain is from, as multiple factors could be causing it at this point in time. The patient is being treated aggressively at this time with medications until we get the MRI results and make appropriate adjustments based on the findings. Detailed discussion with the patient, spoke to Dr. Byrne as well. The patient is too sick to have a diagnostic laparoscopy that may be difficult, and the patient has had prior multiple surgeries on her abdominal cavity with multiple adhesions documented in the past. Conservative management is in the offing at this time and that will be the best approach for the patient for now. We will continue pain medicines as required and we will continue to monitor electrolytes as well. Detailed discussion with the patient, spoke to Dr. Byrne, spoke to Dr. Ricardo, the kidney specialist, who was also helping us on managing with her electrolytes and trace elements. Time spent with the patient is greater than 45 minutes. Please make a note, this is a complex patient with multiple comorbid medical issues. Hannah Sanchez MD
[2018-10-12] MEDS: Morphine 4 mg/ml ISec IVP PRN ×3 (01:40→21:00)
[2018-10-12] MEDS: Potassium Phosphate 20 MMOLE in Sodium Chloride 0.9% 1,000 ML IV SCH ×2 (02:00→11:59)
[2018-10-12] MEDS: Pantoprazole 40 mg EC Tab PO SCH (05:25)
[2018-10-12 07:13] LABS: BASO # 0.02 K/mm3 (0.0-2.0); BASO % 0.3 % (0.0-3.0); EOS # 0.2 (0.0-0.7); EOS % 3.2 % (1.5-5.0); GRAN # 2.62 (1.4-6.5); GRAN % 43.9 % (50.0-68.0); LYMPH # 2.8 (1.2-3.4); LYMPH % 47.2 % (22.0-35.0); MEAN CELL VOLUME 85.4 fl (80.0-105.0); MEAN CORPUSCULAR HEMOGLOBIN 27.6 pg (25.0-35.0); MEAN CORPUSCULAR HGB CONC 32.4 g/dl (31.0-37.0); MEAN PLATELET VOLUME 9.7 fl (7.0-11.0); MONO # 0.3 (0.1-0.6); MONO % 5.4 % (1.0-6.0); RBC 3.98 10^6/uL (3.5-6.1); RED CELL DISTRIBUTION WIDTH 13.5 % (11.5-14.5)
[2018-10-12 07:27] LABS: ALB/GLOB RATIO 1.2 (1.1-1.8); ALBUMIN 3.3 g/dL (3.0-4.8); ALT/SGPT 22 U/L (7-56); AST/SGOT 17 U/L (14-36); BLOOD UREA NITROGEN < 2 mg/dL (7-21); CALCIUM 7.3 mg/dL (8.4-10.5); GFR NON-AFRICAN AMERICAN > 60
--- NOTE | 2018-10-12 07:30 | CP.PCM.PN ---
Subjective - Date & Time of Evaluation Date of Evaluation: 10/12/18 Time of Evaluation: 12:30 - Subjective Subjective: Galen Hernandez-Internal Medicine Resident- Hematology Oncology Progress Note Subjective: Patient seen and examined. No acute events overnight. Patent states abdominal pain has improved relative to baseline. Denies fever, chills, chest pain, SOB. 12 point ROS negative except as indicated in HPI Physical Examination: - Constitutional Appears: Non-toxic, No Acute Distress - Head Exam Head Exam: ATRAUMATIC, NORMOCEPHALIC - Eye Exam Eye Exam: EOMI, Normal appearance - ENT Exam ENT Exam: Mucous Membranes Moist - Neck Exam Neck exam: Positive for: Full Rom - Respiratory Exam Respiratory Exam: Clear to Auscultation Bilateral, NORMAL BREATHING PATTERN. absent: Rales, Rhonchi, Wheezes - Cardiovascular Exam Cardiovascular Exam: REGULAR RHYTHM, RRR, +S1, +S2 - GI/Abdominal Exam GI & Abdominal Exam: Normal Bowel Sounds, Soft, Tenderness (TTP epigastric). absent: Distended, Firm, Guarding, Rebound - Rectal Exam Rectal Exam: Deferred - Extremities Exam Extremities exam: Negative for: calf tenderness - Neurological Exam Neurological exam: Alert, Oriented x3 - Psychiatric Exam Psychiatric exam: Normal Affect, Normal Mood - Skin Skin Exam: Dry, Intact, Warm Assessment and Plan: 58 year old female with a past medical history significant for Von Willebrand's Disease, HTN and Short Gut Syndrome who presents with one day of diffuse abdominal cramping with two associated episodes of diarrhea. Diffuse Abdominal Pain -Etiology: Dyspepsia vs. constipation with overflow diarrhea - 10/09/2018 MRA abdomen w/wo IV contrast- Markedly limited examination. No evidence of aneurysmal dilatation of the aorta. Thin T2 hypointense linear structure noted within the proximal superior mesenteric artery appears to reflect artifact rather than dissection. A review of this region on CT with contrast performed 10/06/18 demonstrates no appreciable abnormality or evidence of dissection. -EGD showed gastritis -MRCP showed unchanged pancreatic dilatation from 2012 -CT Abdomen/Pelvis showed dilated pancreatic duct to 4mm, increased stool burden in and previously seen duodenal diverticulum -Chest X-Ray showed no acute pulmonary disease -EKG showed normal sinus rhythm without ST segment changes -Amylase and Lipase within normal limits -UA negative for UTI -C. Diff serology negative -Norovirus and Salmonella serologies pending -Continue Pepcid, Protonix and Carafate -Continue Miralax -Continue Zofran 4mg Q4 PRN for N/V -Morphine IV changed to PO extended release 30mg q12 prn pain -Continue NS at 100mls/hr -CLD; ADAT -No surgical interventions indicated at this time -GI and Surgery consulted, all recommendations appreciated History of HTN -Continue Clonidine 0.1mg PO Q6 PRN -Nephrology consulted, all recommendations appreciated Questionable Hx of Depression - will confirm home dosage of wellbutrin and restart Prophylaxis GI Prophylaxis: Protonix DVT Prophylaxis: SCD's Patient case discussed with and plan approved by attending physician, Dr. Sanchez. Objective - Vital Signs/Intake and Output Vital Signs (last 24 hours): Temp Pulse Resp BP Pulse Ox 98.6 F 76 18 124/87 98 10/11/18 17:14 10/11/18 17:14 10/11/18 17:14 10/11/18 17:14 10/11/18 17:14 - Medications Medications: Current Medications Clonidine HCl (Catapres) 0.1 mg PO Q6 PRN PRN Reason: hypertension Last Admin: 10/10/18 17:24 Dose: 0.1 mg Ergocalciferol (Drisdol 50,000 Intl Units Cap) 1 cap PO Q7D [facility] Last Admin: 10/11/18 15:43 Dose: 1 cap Famotidine (Pepcid) 40 mg PO HS [facility] Last Admin: 10/11/18 21:36 Dose: 40 mg Potassium Phosphate 20 mmole/ (Sodium Chloride) 1,006.6667 mls @ 100 mls/hr IV .Q10H4M [facility] Last Admin: 10/12/18 02:00 Dose: Not Given Morphine Sulfate (Morphine) 2 mg IVP Q3H PRN PRN Reason: Pain, severe (8-10) Last Admin: 10/12/18 01:40 Dose: 2 mg Ondansetron HCl (Zofran Inj) 4 mg IVP Q6H PRN PRN Reason: Nausea/Vomiting Pantoprazole Sodium (Protonix Ec Tab) 40 mg PO 0600 [facility] Last Admin: 10/12/18 05:25 Dose: 40 mg Polyethylene Glycol (Miralax) 17 gm PO TID [facility] Last Admin: 10/11/18 21:40 Dose: 17 gm Potassium Phos/Sodium Phos (Neutra-Phos) 1 pkt PO BID [facility] Last Admin: 10/11/18 18:06 Dose: 1 pkt Sucralfate (Carafate Oral Susp) 1 gm PO 1100,1600,2000 [facility] Last Admin: 10/11/18 20:49 Dose: 1 gm - Labs Labs: 10/12/18 05:30 10/12/18 05:30 PT 11.6 SECONDS (9.4-12.5) 10/07/18 20:15 INR 1.02 10/07/18 20:15
--- NOTE | 2018-10-12 08:17 | CP.PCM.PN ---
Subjective - Date & Time of Evaluation Date of Evaluation: 10/12/18 Time of Evaluation: 08:16 - Subjective Subjective: Surgical Progress Note for Dr. Styles Patient was seen and examined at bedside this morning No acute events overnight, Afebrile Abd pain improved; Tolerating diet well; Objective - Vital Signs/Intake and Output Vital Signs (last 24 hours): Temp Pulse Resp BP Pulse Ox 98.6 F 76 18 124/87 98 10/11/18 17:14 10/11/18 17:14 10/11/18 17:14 10/11/18 17:14 10/11/18 17:14 - Medications Medications: Current Medications Clonidine HCl (Catapres) 0.1 mg PO Q6 PRN PRN Reason: hypertension Last Admin: 10/10/18 17:24 Dose: 0.1 mg Ergocalciferol (Drisdol 50,000 Intl Units Cap) 1 cap PO Q7D ON LICENSE OF [facility] Last Admin: 10/11/18 15:43 Dose: 1 cap Famotidine (Pepcid) 40 mg PO HS ON LICENSE OF [facility] Last Admin: 10/11/18 21:36 Dose: 40 mg Potassium Phosphate 20 mmole/ (Sodium Chloride) 1,006.6667 mls @ 100 mls/hr IV .Q10H4M ON LICENSE OF [facility] Last Admin: 10/12/18 02:00 Dose: Not Given Morphine Sulfate (Morphine) 2 mg IVP Q3H PRN PRN Reason: Pain, severe (8-10) Last Admin: 10/12/18 07:56 Dose: 2 mg Ondansetron HCl (Zofran Inj) 4 mg IVP Q6H PRN PRN Reason: Nausea/Vomiting Pantoprazole Sodium (Protonix Ec Tab) 40 mg PO 0600 ON LICENSE OF [facility] Last Admin: 10/12/18 05:25 Dose: 40 mg Polyethylene Glycol (Miralax) 17 gm PO TID ON LICENSE OF [facility] Last Admin: 10/11/18 21:40 Dose: 17 gm Potassium Phos/Sodium Phos (Neutra-Phos) 1 pkt PO BID ON LICENSE OF [facility] Last Admin: 10/11/18 18:06 Dose: 1 pkt Sucralfate (Carafate Oral Susp) 1 gm PO 1100,1600,2000 ON LICENSE OF [facility] Last Admin: 10/11/18 20:49 Dose: 1 gm - Labs Labs: 10/12/18 05:30 10/12/18 05:30 PT 11.6 SECONDS (9.4-12.5) 10/07/18 20:15 INR 1.02 10/07/18 20:15 - Constitutional Appears: Non-toxic, No Acute Distress - Head Exam Head Exam: ATRAUMATIC - Eye Exam Eye Exam: EOMI. absent: Scleral icterus - ENT Exam ENT Exam: Mucous Membranes Moist - Respiratory Exam Respiratory Exam: NORMAL BREATHING PATTERN. absent: Accessory Muscle Use, Respiratory Distress - Cardiovascular Exam Cardiovascular Exam: +S1, +S2. absent: Bradycardia, Tachycardia - GI/Abdominal Exam GI & Abdominal Exam: Abdomen soft, minimal tenderness to palpation, - Extremities Exam Extremities Exam: absent: Calf Tenderness - Neurological Exam Neurological Exam: Alert, Awake, Oriented x3 Assessment and Plan - Assessment and Plan (Free Text) Assessment: 58F w/ PMH of Von Willebrands disease, hx of cholecystectomy 04/2015, small bowel resection, short gut syndrome, hysterectomy, presented on 10/06 w/ c/o of abd pain + diarrhea 2/2 duodenal diverticulum? Plan: -MRA negative for ischemic changes -ADAT -OOB / Ambulate -DVT/GI PPX -GI Reccs appreciated -No plans for surgical intervention at this time -Reconsult as necessary -Discussed w/ attending Dr. Jensen Hernandez DO PGY1 - Medicine [employer] Architect - Surgical Progress Note
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
[2018-10-12] MEDS: Potassium & Sodium Phosphate PO SCH ×2 (09:25→17:27)
[2018-10-12] MEDS: POLYETHYLENE GLYCOL 3350 17 GM/Dose PACKET PO SCH ×3 (09:25→17:28)
[2018-10-12] MEDS: Sucralfate 1 gm/10 ml Oral Susp UD PO SCH ×3 (10:53→20:59)
[2018-10-12] MEDS ORDERED: Peg-Electrolyte Oral Soln 4L (Golytely) PO ONE (10:57)
[2018-10-12] MEDS: Morphine 30 mg SR Tab PO PRN (13:47)
--- NOTE | 2018-10-12 13:57 | PN ---
DATE: 10/12/2018 SUBJECTIVE: The patient is seen walking in the hallway. She is still complaining of abdominal pain. She is complaining of some frequency of liquid stool. PHYSICAL EXAMINATION: GENERAL: Middle-aged lady, walking in the hallway. VITAL SIGNS: Blood pressure 103/67, heart rate 70, respiratory rate 20, temperature 98.2. HEENT: Normocephalic, atraumatic, positive pallor. NECK: Supple, no JVD. LUNGS: Bilateral equal air entry, bilateral equal expansion. CARDIAC: S1 and S2, regular rate and rhythm, no murmur, no rub. ABDOMEN: Soft, nondistended, nontender, bowel sounds present. EXTREMITIES: No lower extremity edema. LABORATORY DATA: WBC 6, hemoglobin 11, hematocrit 34, platelets 205. Sodium 142, potassium 3.5, chloride 109, CO2 of 27, BUN less than 2, creatinine 0.6, calcium 7.3, phosphorus 3, magnesium 2.3. CURRENT MEDICATIONS: Carafate, Catapres 0.1 every 6 p.r.n., Drisdol 50,000 units started yesterday, MiraLax, morphine, potassium phosphate 1 packet b.i.d., Pepcid, normal saline with 20 mmol of potassium phosphate is at 100. ASSESSMENT: 1. Hypocalcemia, low vitamin D, ? hypoparathyroidism. 2. Hypokalemia. 3. Resolved hypophosphatemia. 4. Abdominal pain. PLAN: 1. Check intact PTH. 2. Calcium gluconate x1. 3. Continue Drisdol. 4. Change IV fluids to normal saline with potassium chloride 20 mEq. 5. Continue p.o. Neutra-Phos. Thea Ricardo MD
--- NOTE | 2018-10-12 15:09 | CP.PCM.PN ---
<Mamie Hameed - Last Filed: 10/12/18 15:06> Subjective - Date & Time of Evaluation Date of Evaluation: 10/12/18 Time of Evaluation: 15:06 - Subjective Subjective: Gastroenterology Fellow/PGY6 Progress Note Patient notes slight improvement of upper abdominal pain. Tolerating liquid diet. Admits to small liquid stool with formed particles this morning after receiving magnesium citrate yesterday. A 12-point review of systems negative except for as above. Objective - Vital Signs/Intake and Output Vital Signs (last 24 hours): Temp Pulse Resp BP Pulse Ox 98.2 F 70 20 103/67 97 10/12/18 08:16 10/12/18 08:16 10/12/18 08:16 10/12/18 08:16 10/12/18 08:16 - Medications Medications: Current Medications Clonidine HCl (Catapres) 0.1 mg PO Q6 PRN PRN Reason: hypertension Last Admin: 10/10/18 17:24 Dose: 0.1 mg Ergocalciferol (Drisdol 50,000 Intl Units Cap) 1 cap PO Q7D [facility] Last Admin: 10/11/18 15:43 Dose: 1 cap Famotidine (Pepcid) 40 mg PO HS [facility] Last Admin: 10/11/18 21:36 Dose: 40 mg Potassium Chloride 20 meq/ (Sodium Chloride) 1,010 mls @ 100 mls/hr IV .Q10H6M [facility] Morphine Sulfate (Morphine) 2 mg IVP Q3H PRN PRN Reason: Pain, severe (8-10) Last Admin: 10/12/18 07:56 Dose: 2 mg Morphine Sulfate (Morphine Extended Release Tab) 30 mg PO Q12 PRN PRN Reason: Pain, moderate (4-7) Last Admin: 10/12/18 13:47 Dose: 30 mg Ondansetron HCl (Zofran Inj) 4 mg IVP Q6H PRN PRN Reason: Nausea/Vomiting Pantoprazole Sodium (Protonix Ec Tab) 40 mg PO 0600 [facility] Last Admin: 10/12/18 05:25 Dose: 40 mg Polyethylene Glycol (Miralax) 17 gm PO TID [facility] Last Admin: 10/12/18 13:18 Dose: Not Given Potassium Phos/Sodium Phos (Neutra-Phos) 1 pkt PO BID [facility] Last Admin: 10/12/18 09:25 Dose: 1 pkt Sucralfate (Carafate Oral Susp) 1 gm PO 1100,1600,2000 [facility] Last Admin: 10/12/18 10:53 Dose: 1 gm - Labs Labs: 10/12/18 05:30 10/12/18 05:30 PT 11.6 SECONDS (9.4-12.5) 10/07/18 20:15 INR 1.02 10/07/18 20:15 - Constitutional Appears: Non-toxic, No Acute Distress - Head Exam Head Exam: ATRAUMATIC, NORMOCEPHALIC - Eye Exam Eye Exam: EOMI, PERRL. absent: Scleral icterus Pupil Exam: PERRL. absent: Miosis, Mydriatic - ENT Exam ENT Exam: Mucous Membranes Moist, Normal Oropharynx - Neck Exam Neck Exam: Full ROM, Normal Inspection - Respiratory Exam Respiratory Exam: Clear to Ausculation Bilateral. absent: Rales, Rhonchi, Wheezes - Cardiovascular Exam Cardiovascular Exam: RRR, +S1, +S2. absent: Gallop, Rubs - GI/Abdominal Exam GI & Abdominal Exam: Soft, Tenderness, Normal Bowel Sounds. absent: Distended, Firm, Guarding, Rigid, Organomegaly, Rebound Additional comments: B/L UQ discomfort to palpation - Extremities Exam Extremities Exam: Normal Inspection. absent: Pedal Edema - Neurological Exam Neurological Exam: Alert, Awake - Psychiatric Exam Psychiatric exam: Normal Affect, Normal Mood - Skin Skin Exam: Dry, Intact, Normal Color, Warm Assessment and Plan - Assessment and Plan (Free Text) Assessment: 58 year old female with PMH of von Willebrand's, short gut syndrome s/p multiple intestinal resections 2/2 bowel obstruction/small bowel infarct/Cdiff colitis/SIBO, and cholecystectomy presenting with abdominal pain. Active treatment of intractable abdominal pain likely 2/2 opioid-induced constipation with overflow diarrhea. CT A/P showed increased stool burden ascending/transverse colon. EGD 10/10/18 showed gastritis, ampulla assessed with side-viewing duodenoscope- no abnormalities noted, patent -CT A/P IV contrast- increased stool burden ascending/transverse colon Prior colonoscopy 07/2018 showed ileocolonic anastomosis and colocolonic anastomosis, diverticulosis, internal hemorrhoids, and 6mm inflammatory polyp. EGD 08/2012 showed H. pylori negative gastritis. Plan: -MRA A/P- no signs of ischemia -minimal stool output after Mg citrate 10/11 -ordered 2Liters Golytely once -will continue daily bowel regimen starting tomorrow -avoids NSAIDs and narcotics -continue PPI ACB, pepcid QHS, and carafate for dyspepsia -will follow clinical course <Jonnathan Byrne V - Last Filed: 10/14/18 00:01> Objective - Vital Signs/Intake and Output Vital Signs (last 24 hours): Temp Pulse Resp BP Pulse Ox 98 F 71 19 113/73 98 10/13/18 08:24 10/13/18 08:24 10/13/18 08:24 10/13/18 08:24 10/13/18 08:24 - Labs Labs: 10/12/18 05:30 10/12/18 05:30 PT 11.6 SECONDS (9.4-12.5) 10/07/18 20:15 INR 1.02 10/07/18 20:15 Attending/Attestation - Attestation I have personally seen and examined this patient.: Yes I have fully participated in the care of the patient.: Yes I have reviewed all pertinent clinical information, including history, physical exam and plan: Yes Notes (Text): This is an addendum to GI progress report dictated by the GI Fellow.The patient was seen and examined earlier. Medical records, lab studies, imagings were reviewed. Last 24 hours events reviewed. Agreed with the above treatment plan as outlined in GI Fellow 's notes with the addition of the following 10/14/18 00:01
[2018-10-13 00:48] VITALS: O2SAT 98
[2018-10-13] MEDS: Pantoprazole 40 mg EC Tab PO SCH (05:17)
[2018-10-13] MEDS: Morphine 4 mg/ml ISec IVP PRN (06:17)
--- NOTE | 2018-10-13 07:14 | CP.PCM.PN ---
Subjective - Date & Time of Evaluation Date of Evaluation: 10/13/18 Time of Evaluation: 09:00 - Subjective Subjective: Galen Hernandez-Internal Medicine Resident- Hematology Oncology Progress Note Subjective: Patient seen and examined. No acute events overnight. Patent states abdominal pain has improved relative to baseline. Denies fever, chills, chest pain, SOB. 12 point ROS negative except as indicated in HPI Physical Examination: - Constitutional Appears: Non-toxic, No Acute Distress - Head Exam Head Exam: ATRAUMATIC, NORMOCEPHALIC - Eye Exam Eye Exam: EOMI, Normal appearance - ENT Exam ENT Exam: Mucous Membranes Moist - Neck Exam Neck exam: Positive for: Full Rom - Respiratory Exam Respiratory Exam: Clear to Auscultation Bilateral, NORMAL BREATHING PATTERN. absent: Rales, Rhonchi, Wheezes - Cardiovascular Exam Cardiovascular Exam: REGULAR RHYTHM, RRR, +S1, +S2 - GI/Abdominal Exam GI & Abdominal Exam: Normal Bowel Sounds, Soft, Tenderness (TTP epigastric). absent: Distended, Firm, Guarding, Rebound - Rectal Exam Rectal Exam: Deferred - Extremities Exam Extremities exam: Negative for: calf tenderness - Neurological Exam Neurological exam: Alert, Oriented x3 - Psychiatric Exam Psychiatric exam: Normal Affect, Normal Mood - Skin Skin Exam: Dry, Intact, Warm Assessment and Plan: 58 year old female with a past medical history significant for Von Willebrand's Disease, HTN and Short Gut Syndrome who presents with one day of diffuse abdominal cramping with two associated episodes of diarrhea. Diffuse Abdominal Pain -Etiology: Dyspepsia vs. constipation with overflow diarrhea - 10/09/2018 MRA abdomen w/wo IV contrast- Markedly limited examination. No evidence of aneurysmal dilatation of the aorta. Thin T2 hypointense linear structure noted within the proximal superior mesenteric artery appears to reflect artifact rather than dissection. A review of this region on CT with contrast performed 10/06/18 demonstrates no appreciable abnormality or evidence of dissection. -EGD showed gastritis -MRCP showed unchanged pancreatic dilatation from 2012 -CT Abdomen/Pelvis showed dilated pancreatic duct to 4mm, increased stool burden in and previously seen duodenal diverticulum -Chest X-Ray showed no acute pulmonary disease -EKG showed normal sinus rhythm without ST segment changes -Amylase and Lipase within normal limits -UA negative for UTI -C. Diff serology negative -Norovirus and Salmonella serologies pending -Continue Pepcid, Protonix and Carafate -Continue Miralax -Continue Zofran 4mg Q4 PRN for N/V -Morphine IV changed to PO extended release 30mg q12 prn pain -Continue NS at 100mls/hr -CLD; ADAT -No surgical interventions indicated at this time -GI and Surgery consulted, all recommendations appreciated History of HTN -Continue Clonidine 0.1mg PO Q6 PRN -Nephrology consulted, all recommendations appreciated Questionable Hx of Depression - will confirm home dosage of wellbutrin and restart Prophylaxis GI Prophylaxis: Protonix DVT Prophylaxis: SCD's Patient case discussed with and plan approved by attending physician, Dr. Sanchez. Objective - Vital Signs/Intake and Output Vital Signs (last 24 hours): Temp Pulse Resp BP Pulse Ox 97.6 F 67 18 128/90 98 10/12/18 16:48 10/12/18 16:48 10/12/18 16:48 10/12/18 16:48 10/12/18 16:48 - Medications Medications: Current Medications Clonidine HCl (Catapres) 0.1 mg PO Q6 PRN PRN Reason: hypertension Last Admin: 10/10/18 17:24 Dose: 0.1 mg Ergocalciferol (Drisdol 50,000 Intl Units Cap) 1 cap PO Q7D [facility] Last Admin: 10/11/18 15:43 Dose: 1 cap Famotidine (Pepcid) 40 mg PO HS [facility] Last Admin: 10/12/18 21:52 Dose: 40 mg Potassium Chloride 20 meq/ (Sodium Chloride) 1,010 mls @ 100 mls/hr IV .Q10H6M [facility] Last Admin: 10/13/18 01:33 Dose: 100 mls/hr Morphine Sulfate (Morphine) 2 mg IVP Q3H PRN PRN Reason: Pain, severe (8-10) Last Admin: 10/13/18 06:17 Dose: 2 mg Morphine Sulfate (Morphine Extended Release Tab) 30 mg PO Q12 PRN PRN Reason: Pain, moderate (4-7) Last Admin: 10/12/18 13:47 Dose: 30 mg Ondansetron HCl (Zofran Inj) 4 mg IVP Q6H PRN PRN Reason: Nausea/Vomiting Pantoprazole Sodium (Protonix Ec Tab) 40 mg PO 0600 [facility] Last Admin: 10/13/18 05:17 Dose: 40 mg Polyethylene Glycol (Miralax) 17 gm PO TID [facility] Last Admin: 10/12/18 17:28 Dose: Not Given Potassium Phos/Sodium Phos (Neutra-Phos) 1 pkt PO BID [facility] Last Admin: 10/12/18 17:27 Dose: 1 pkt Sucralfate (Carafate Oral Susp) 1 gm PO 1100,1600,2000 [facility] Last Admin: 10/12/18 20:59 Dose: 1 gm - Labs Labs: 10/12/18 05:30 10/12/18 05:30 PT 11.6 SECONDS (9.4-12.5) 10/07/18 20:15 INR 1.02 10/07/18 20:15
[2018-10-13 08:25] VITALS: BP 113/73; PULSE 71; RESP 19; TEMP 98
[2018-10-13] MEDS: Sucralfate 1 gm/10 ml Oral Susp UD PO SCH (10:50)
[2018-10-13] MEDS: Potassium & Sodium Phosphate PO SCH (10:50)
[2018-10-13] MEDS: POLYETHYLENE GLYCOL 3350 17 GM/Dose PACKET PO SCH (10:50)
[2018-10-13] MEDS ORDERED: buPROPion 300 mg/24 Hours XL Tab PO SCH (11:45)
[2018-10-13] MEDS: Morphine 30 mg SR Tab PO PRN (12:15)
--- NOTE | 2018-10-13 12:22 | CP.PCM.DIS ---
Provider - Provider Date of Admission: 10/08/18 13:02 Attending physician: Benito Jacinto MD Time Spent in preparation of Discharge (in minutes): 45 Diagnosis - Discharge Diagnosis (1) Abdominal pain Status: Chronic Priority: Medium (2) Hypertension Status: Chronic Priority: Medium (3) Abdominal pain Status: Chronic Priority: Medium (4) Short gut syndrome Status: Chronic Priority: Medium (5) Von Willebrand disease Status: Chronic Priority: Medium Hospital Course - Lab Results Lab Results: Micro Results 10/08/18 20:00 Stool C. difficile Antigen & Toxins A,B - Final 10/06/18 12:30 Urine Urine Culture - Final No Growth (<1,000 CFU/ML) Most Recent Lab Values WBC 6.0 10^3/uL (4.5-11.0) D 10/12/18 05:30 RBC 3.98 10^6/uL (3.5-6.1) 10/12/18 05:30 Hgb 11.0 g/dL (12.0-16.0) L 10/12/18 05:30 Hct 34.0 % (36.0-48.0) L 10/12/18 05:30 MCV 85.4 fl (80.0-105.0) 10/12/18 05:30 MCH 27.6 pg (25.0-35.0) 10/12/18 05:30 MCHC 32.4 g/dl (31.0-37.0) 10/12/18 05:30 RDW 13.5 % (11.5-14.5) 10/12/18 05:30 Plt Count 205 10^3/uL (120.0-450.0) 10/12/18 05:30 MPV 9.7 fl (7.0-11.0) 10/12/18 05:30 Gran % 43.9 % (50.0-68.0) L 10/12/18 05:30 Lymph % (Auto) 47.2 % (22.0-35.0) H 10/12/18 05:30 [place] % (Auto) 5.4 % (1.0-6.0) 10/12/18 05:30 Eos % (Auto) 3.2 % (1.5-5.0) 10/12/18 05:30 Baso % (Auto) 0.3 % (0.0-3.0) 10/12/18 05:30 Gran # 2.62 (1.4-6.5) 10/12/18 05:30 Lymph # (Auto) 2.8 (1.2-3.4) 10/12/18 05:30 [place] # (Auto) 0.3 (0.1-0.6) 10/12/18 05:30 Eos # (Auto) 0.2 (0.0-0.7) 10/12/18 05:30 Baso # (Auto) 0.02 K/mm3 (0.0-2.0) 10/12/18 05:30 PT 11.6 SECONDS (9.4-12.5) 10/07/18 20:15 INR 1.02 10/07/18 20:15 pO2 47 mm/Hg (30-55) 10/06/18 12:30 VBG pH 7.36 (7.32-7.43) 10/06/18 12:30 VBG pCO2 56.0 (40-60) 10/06/18 12:30 VBG HCO3 31.6 mmol/l (21-28) H 10/06/18 12:30 VBG Total CO2 33.3 mmol.L (22-28) H 10/06/18 12:30 VBG O2 Sat (Calc) 83.1 % (40-65) H 10/06/18 12:30 VBG Base Excess 4.6 mmol/L (0.0-2.0) H 10/06/18 12:30 VBG Potassium 3.8 mmol/L (3.6-5.2) 10/06/18 12:30 Sodium 139.0 mmol/L (132-148) 10/06/18 12:30 Chloride 101.0 mmol/L (98-107) 10/06/18 12:30 Glucose 93 mg/dl (65-105) 10/06/18 12:30 Lactate 1.6 mmol/L (0.7-2.1) 10/06/18 12:30 FiO2 21.0 % 10/06/18 12:30 Sodium 142 mmol/L (132-148) 10/12/18 05:30 Potassium 3.5 mmol/L (3.6-5.0) L 10/12/18 05:30 Chloride 109 mmol/L (98-107) H 10/12/18 05:30 Carbon Dioxide 27 mmol/L (21-33) 10/12/18 05:30 Anion Gap 9 (10-20) L 10/12/18 05:30 BUN < 2 mg/dL (7-21) L 10/12/18 05:30 Creatinine 0.6 mg/dl (0.7-1.2) L 10/12/18 05:30 Est GFR ( Amer) > 60 10/12/18 05:30 Est GFR (Non-Af Amer) > 60 10/12/18 05:30 Random Glucose 81 mg/dL (70-110) 10/12/18 05:30 Calcium 7.3 mg/dL (8.4-10.5) L 10/12/18 05:30 Phosphorus 3.0 mg/dL (2.5-4.5) 10/12/18 05:30 Magnesium 2.3 mg/dL (1.7-2.2) H 10/12/18 05:30 Total Bilirubin 0.4 mg/dL (0.2-1.3) 10/12/18 05:30 AST 17 U/L (14-36) 10/12/18 05:30 ALT 22 U/L (7-56) 10/12/18 05:30 Alkaline Phosphatase 54 U/L (38-126) 10/12/18 05:30 Total Protein 6.1 g/dL (5.8-8.3) 10/12/18 05:30 Albumin 3.3 g/dL (3.0-4.8) 10/12/18 05:30 Globulin 2.8 gm/dL 10/12/18 05:30 Albumin/Globulin Ratio 1.2 (1.1-1.8) 10/12/18 05:30 Amylase 97 U/L (35-125) 10/06/18 12:30 Lipase 37 U/L (23-300) 10/06/18 12:30 25-OH Vitamin D Total 26.4 NG/ML (30.0-100.0) L 10/10/18 06:12 Venous Blood Potassium 3.8 mmol/L (3.6-5.2) 10/06/18 12:30 Urine Color Yellow (YELLOW) 10/06/18 12:30 Urine Appearance Clear (CLEAR) 10/06/18 12:30 Urine pH 7.0 (4.7-8.0) 10/06/18 12:30 Ur Specific [place] 1.010 (1.005-1.035) 10/06/18 12:30 Urine Protein Negative mg/dL (<30 mg/dL) 10/06/18 12:30 Urine Glucose (UA) Negative mg/dL (NEGATIVE) 10/06/18 12:30 Urine Ketones Negative mg/dL (NEGATIVE) 10/06/18 12:30 Urine Blood Negative (NEGATIVE) 10/06/18 12:30 Urine Nitrate Negative (NEGATIVE) 10/06/18 12:30 Urine Bilirubin Negative (NEGATIVE) 10/06/18 12:30 Urine Urobilinogen 0.2 E.U./dL (<1 E.U./dL) 10/06/18 12:30 Ur Leukocyte Esterase Trace Mag[place]/uL (NEGATIVE) H 10/06/18 12:30 Salmonella H Type A Equivocal H 10/07/18 06:00 Salmonella H Type B Equivocal H 10/07/18 06:00 Salmonella H Type D Equivocal H 10/07/18 06:00 Salmonella O Type D Negative 10/07/18 06:00 Salmonella O Type Vi Positive H 10/07/18 06:00 Discharge Exam - Head Exam Head Exam: ATRAUMATIC, NORMOCEPHALIC Discharge Plan - Follow Up Plan Condition: FAIR Disposition: HOME/ ROUTINE Additional Instructions: Instructions: Please follow up with primary care physician within 3-5 days Please take medications as prescribed Please return to emergency department for evaluation and treatment for new or worsening symptoms.
[2018-10-13] MEDS ORDERED: Pneumococcal 23-Valent Vaccine IM ONE (12:55)
[2018-10-13] MEDS ORDERED: Influenza Vaccine 60 mcg/0.5 mL SYR (4YR UP) IM ONE (12:55)
== END 2018-10-13 14:14 | disposition home or self-care (01) | DRG 392 ==
LOC: ED 11:17 → INTOOBSV 15:12 → OBSVTOIN 15:12 → ERH 15:12 → 3RNO 17:17 → OBSVTOIN 10-08 13:02
PROVIDERS: ADMIT Family Medicine; ATTEND Family Medicine
PROC: 0DJ08ZZ Inspection of Upper Intestinal Tract, Via Natural or Artificial Opening Endoscopic (ICD-10-PCS; principal; 2018-10-08 12:00)
PROC: 3E02340 Introduction of Influenza Vaccine into Muscle, Percutaneous Approach (ICD-10-PCS; 2018-10-13)
PROC: 3E0234Z Introduction of Serum, Toxoid and Vaccine into Muscle, Percutaneous Approach (ICD-10-PCS; 2018-10-13)
DX: R10.9 Unspecified abdominal pain (principal); D68.0 Von Willebrand disease; K56.609 Unspecified intestinal obstruction, unspecified as to partial versus complete obstruction; K91.2 Postsurgical malabsorption, not elsewhere classified; I10 Essential (primary) hypertension; D86.9 Sarcoidosis, unspecified; E20.9 Hypoparathyroidism, unspecified; E87.6 Hypokalemia; E78.00 Pure hypercholesterolemia, unspecified; G89.29 Other chronic pain; I73.9 Peripheral vascular disease, unspecified; I95.1 Orthostatic hypotension; J44.9 Chronic obstructive pulmonary disease, unspecified; K31.84 Gastroparesis; K29.70 Gastritis, unspecified, without bleeding; K57.10 Diverticulosis of small intestine without perforation or abscess without bleeding; K86.89 Other specified diseases of pancreas; M85.80 Other specified disorders of bone density and structure, unspecified site; D50.9 Iron deficiency anemia, unspecified; Z86.718 Personal history of other venous thrombosis and embolism; R29.6 Repeated falls; Z87.410 Personal history of cervical dysplasia; Z90.49 Acquired absence of other specified parts of digestive tract; Z90.710 Acquired absence of both cervix and uterus; Z90.721 Acquired absence of ovaries, unilateral; Z86.19 Personal history of other infectious and parasitic diseases; E66.9 Obesity, unspecified; Z68.37 Body mass index [BMI] 37.0-37.9, adult; Z23 Encounter for immunization

== ENCOUNTER 2019-03-08 10:23 | Outpatient (CLI) | payer BC | END 2019-03-10 10:24 | disposition home or self-care (01) | LOC: RAD 10:23 | DX: D86.0 Sarcoidosis of lung (principal) ==